=== PATIENT | male | born 1985 | race Caucasian/White ===

== ENCOUNTER 2021-03-01 09:16 | Outpatient (REF) | payer OTHER, SELFPAY ==
[2021-03-01 10:18] LABS: Estimated Average Glucose 108 mg/dL; Hemoglobin A1c % 5.4 %
[2021-03-01 10:29] LABS: Cholesterol 170 mg/dL; HDL Cholesterol 40 mg/dL; LDL Cholesterol Calculated 104 mg/dl; Triglycerides 131 mg/dL
== END 2021-03-01 09:17 | disposition home or self-care (01) ==
LOC: HO.LAB 09:16
PROVIDERS: PCP Nurse Practitioner Family; Visit Provider Psychiatry & Neurology Psychiatry
DX: Z79.899 Other long term (current) drug therapy (principal)
CPT/HCPCS: 36415; 80061; 83036

== ENCOUNTER 2022-04-17 07:03 | Outpatient (REF) | payer OTHER, SELFPAY ==
[2022-04-17 12:01] LABS: Cholesterol 159 mg/dL; HDL Cholesterol 40 mg/dL; LDL Cholesterol Calculated 97 mg/dl; Triglycerides 111 mg/dL
[2022-04-18 07:23] LABS: Estimated Average Glucose 108 mg/dL; Hemoglobin A1c % 5.4 %
== END 2022-04-17 07:04 | disposition home or self-care (01) ==
LOC: HO.HMGCLDS 07:03
PROVIDERS: PCP Nurse Practitioner Family; Visit Provider Psychiatry & Neurology Psychiatry
DX: Z79.899 Other long term (current) drug therapy (principal)
CPT/HCPCS: 36415; 80061; 83036

== ENCOUNTER 2023-06-12 00:42 | Inpatient (IN) | payer OTHER, SELFPAY ==
[2023-06-12 00:51] VITALS: BP 164/106; PULSE 98; RESP 16; TEMP 36.5; O2SAT 95; BMI 40.8
--- NOTE | 2023-06-12 00:55 | PC.NURSE ---
Pt brought in by brother, per his brother he has been forgetting to take his risperidone. Pt endorses this as well. He reports he has been having increased auditory and visual hallucinations. Pt is calm and cooperative and verbalizes understanding that he needs assistance. Of note: pts brother mentioned that if he takes the following medications it increases his symptoms and makes things worse Zyprexa, Seroquel, Timberlake and Depakote
[2023-06-12] MEDS: LORazepam 1 MG TABLET 2 MG PO (01:32)
[2023-06-12] MEDS: risperiDONE 1 MG TABLET PO (01:32)
[2023-06-12 02:05] LABS: Appearance Urine Clear; Color Urine Yellow; Glucose Urine UA Negative (Negative); Leukocyte Esterase Urine Negative (Negative); Nitrite Urine Negative (Negative); Urine Blood Negative (Negative); Urine Ketones Negative (Negative); Urine Protein Negative (Neg-Trace)
[2023-06-12 02:08] LABS: COVID-19 Test Negative (Negative); IDNOW Serial# BCCEAD1C
[2023-06-12 02:11] LABS: Amphetamine Screen Urine Not Detected (Not Detect); Barbiturates, Urine Not Detected (Not Detect); Benzodiazepines Screen Urine Not Detected (Not Detect); Cannabinoid Screen Urine Not Detected (Not Detect); Cocaine Screen Urine Not Detected (Not Detect); Fentanyl, urine Not Detected (Not Detect); Opiate Screen Urine Not Detected (Not Detect); Phencyclidine Screen Urine Not Detected (Not Detect)
[2023-06-12 02:46] LABS: Basophils Percent Auto 0.6 % (0-2); Eosinophils Absolute Auto 0.2 X10*3/uL (0.0-0.4); Eosinophils Percent Auto 2.7 % (0-4); Hematocrit 43.7 % (42.0-52.0); Hemoglobin 15.9 g/dl (14.0-18.0); Imm Gran Abs Auto 0.03 X10*3/uL (0.00-0.03); Imm Gran Pct Auto 0.4 % (0.0-0.4); Lymphocytes Absolute Auto 2.1 X10*3/uL (1.2-4.9); Lymphocytes Percent Auto 31.6 % (20-40); MANUAL DIFF FLAG NO; Mean Corpuscular HGB Conc 36.4 g/dl (31.0-36.0); Mean Corpuscular Hemoglobin 29.1 pg (27.0-33.0); Mean Corpuscular Volume 79.9 fL (80.0-98.0); Mean Platelet Volume 9.4 fL (9.4-12.4); Monocytes Absolute Auto 0.9 X10*3/uL (0.1-1.2); Neutrophils Absolute Auto 3.5 x10*3/uL (2.0-8.3); Neutrophils Percent Auto 51.7 % (45-73); Platelet Count 242 X10*3/uL (160-400); Red Blood Count 5.47 X10*6/uL (4.60-5.80); Red Cell Distribution Width 12.5 % (11.0-16.0); White Blood Count 6.8 X10*3/uL (4.8-10.8)
[2023-06-12 03:06] LABS: Alanine Aminotransferase 60 U/L (0-40); Albumin Level 4.3 g/dL (3.5-5.0); Alkaline Phosphatase 64 U/L (39-117); Anion Gap 15 (12-20); Aspartate Amino Transferase 39 U/L (5-37); Bilirubin Total 0.9 mg/dL (0.0-1.0); Blood Urea Nitrogen 13 mg/dL (9-16); Calcium 9.3 mg/dL (8.4-10.2); Carbon Dioxide 21 mmol/L (22-29); Chloride 103 mmol/L (96-108); Creatinine Clr Calc Pharmacy 133.9; Estimated Glomerular Filt Rate > 60; Ethanol < 10 mg/dL; Glucose Random 118 mg/dL (60-115); Potassium 3.7 mmol/L (3.3-5.1); Sodium 135 mmol/L (135-145); Total Protein 7.3 g/dL (6.5-8.0)
--- NOTE | 2023-06-12 03:31 | MHC.CARE ---
T/W spoke with Pts brother Chin Quach. He reports his brother is Schizoaffective Bipolar.He takes resperidone but has been forgeting to take it. Chin said that his brother is currently hearing voices /seeing things and acting in the manner he usually does when he becomes manic. He reports that Alex has three bottles of resperidone but he said he threw one away because he believes it has been tampered with. Chin added that his brother has been drinking alcohol more frequently as well. Chin reports Pt is beginning to withdraw from others and has been less social over the past week. He reports hearing voices to his Brother. Chin said, Pt has gone [facility] twice before at [facility] to stabilize after decompensating. He said Alex wanted to come to the ER to get his medication right but by the time he got here he had no idea why he was at the ER. I attempted to interview Alex but he had been medicated earlier and I couldn't awaken him.He will be seen in the morning.
--- NOTE | 2023-06-12 05:53 | ED.PSYCH ---
HPI - Psych General Chief Complaint: Psychiatric Symptoms Stated Complaint: psych eval Time Seen by Provider: 06/12/23 01:13 Source: patient and EMS Mode of arrival: ambulatory Limitations: no limitations History of Present Illness HPI Narrative: Patient's with history of bipolar disorder forgetting to take his risperidone tab and says that he has only missed 1 tablet was in the car with his brother who was driving the car , patient's brother noticed something different and had concerns about him and brought him to the ER patient denies any complaints very anxious on arrival denies any SI or HI says that is not feeling himself otherwise Related Data Home Medications Medication Instructions Recorded Confirmed fluticasone furoate 100 1 ea inhalation DAILY 06/12/23 06/12/23 mcg-vilanterol 25 mcg/dose inhalation powder (Breo Ellipta) lansoprazole 30 mg capsule,delayed 30 mg PO DAILY 06/12/23 06/12/23 release risperidone 0.5 mg tablet 0.5 mg PO BID 06/12/23 06/12/23 Allergies Allergy/AdvReac Type Severity Reaction Status Date / Time cat dander [CAT] Allergy Intermediate UNKNOWN Verified 06/12/23 00:57 formoterol [From Dulera] Allergy Unknown Unknown Verified 06/12/23 00:57 mometasone furoate Allergy Unknown Unknown Verified 06/12/23 00:57 [From Dulera] salmeterol Allergy Unknown Unknown Verified 06/12/23 00:57 theophylline Allergy Unknown UNKNOWN Verified 06/12/23 00:57 Review of Systems Review of Systems: Yes all other systems are reviewed and are negative FOR[facility]LY [facility], [facility] Past Medical History Medical History Mild intermittent asthma without complication Anxiety and depression Dorsalgia Surgical History No pertinent past surgical history Family History Family History Father No problems noted. Mother HTN (hypertension) Diabetes mellitus Maternal Grandmother Diabetes mellitus Cancer Maternal Grandfather No problems noted. Brother No problems noted. Social History Social History Advance Directives: No Advance Directives Information Provided: Yes Physical Exam Vital Signs: Vital Signs: Last Vital Signs Temp 97.7 F 06/12/23 00:51 Pulse 98 06/12/23 00:51 Resp 16 06/12/23 00:51 BP 164/106 H 06/12/23 00:51 Pulse Ox 95 06/12/23 00:51 O2 Del Method Room Air 06/12/23 00:51 BMI result Body Mass Index 40.8 Appearance: Alert. Oriented X3. No acute distress. Eyes: PERRLA, No Nystagmus ENT: Pharynx normal. Oral Mucosa moist Neck: Normal inspection. Neck supple. CVS: Normal heart rate and rhythm. Pulses normal. Respiratory: No respiratory distress. Equal air entry bilateral, no wheezing/rales/rhonchi Abdomen: Soft and nontender. Bowel sounds are present, no mass palpable, no CVA tenderness Skin: Skin warm and dry. Normal skin color. Normal skin turgor. Extremities: No lower extremity edema. No calf tenderness psych: Anxious denies any SI or HI no delusions or hallucination Neuro: Oriented X 3. No motor deficit. No sensory deficit.No cerebellar signs , cranial nerves II-XII intact Medications Administered Discontinued Medications Generic Name Dose Route Start Last Admin Trade Name Freq PRN Reason Stop Dose Admin Lorazepam 2 mg 06/12/23 01:26 06/12/23 01:32 Lorazepam 1 Mg Tablet PO 06/12/23 01:27 2 mg ONCE ONE Administration Risperidone 1 mg 06/12/23 01:26 06/12/23 01:32 Risperidone 1 Mg Tablet PO 06/12/23 01:27 1 mg ONCE ONE Administration Medical Decision Making Medical Decision Making [facility] Narrative: Patient to be seen by care team for bipolar disorder. Medically cleared no history of substance abuse Differential Diagnosis Differential Diagnoses: The differential diagnosis associated with the presentation includes Bipolar disorder/anxiety Lab Data [facility] Lab Attestation statement: I reviewed the patient's lab results. 06/12/23 02:41 06/12/23 02:41 Labs: Lab Results 06/12/23 06/12/23 06/12/23 Range/Units 01:43 01:55 02:41 WBC 6.8 (4.8-10.8) X10*3/uL RBC 5.47 (4.60-5.80) X10*6/uL Hgb 15.9 (14.0-18.0) g/dl Hct 43.7 (42.0-52.0) % MCV 79.9 L (80.0-98.0) fL MCH 29.1 (27.0-33.0) pg MCHC 36.4 H (31.0-36.0) g/dl RDW 12.5 (11.0-16.0) % Plt Count 242 (160-400) X10*3/uL MPV 9.4 (9.4-12.4) fL Immature Gran % (Auto) 0.4 (0.0-0.4) % Neut % (Auto) 51.7 (45-73) % Lymph % (Auto) 31.6 (20-40) % [place] % (Auto) 13.0 H (2-11) % Eos % (Auto) 2.7 (0-4) % Baso % (Auto) 0.6 (0-2) % Lymph # (Auto) 2.1 (1.2-4.9) X10*3/uL [place] # (Auto) 0.9 (0.1-1.2) X10*3/uL Eos # (Auto) 0.2 (0.0-0.4) X10*3/uL Baso # (Auto) 0.0 (0.0-0.2) X10*3/uL Abs Immat Gran (auto) 0.03 (0.00-0.03) X10*3/uL Absolute Neuts (auto) 3.5 (2.0-8.3) x10*3/uL Absolute Nucleated RBC 0.000 (0.0-0.012) X10*3/uL Nucleated RBC % (auto) 0.0 (0.0-0.2) /100WBC Sodium 135 (135-145) mmol/L Potassium 3.7 (3.3-5.1) mmol/L Chloride 103 (96-108) mmol/L Carbon Dioxide 21 L (22-29) mmol/L Anion Gap 15 (12-20) BUN 13 (9-16) mg/dL Creatinine 0.94 (0.5-1.4) mg/dL Estim Creat Clear Calc 133.9 Estimated GFR > 60 Random Glucose 118 H (60-115) mg/dL Calcium 9.3 (8.4-10.2) mg/dL Total Bilirubin 0.9 (0.0-1.0) mg/dL AST 39 H (5-37) U/L ALT 60 H (0-40) U/L Alkaline Phosphatase 64 (39-117) U/L Total Protein 7.3 (6.5-8.0) g/dL Albumin 4.3 (3.5-5.0) g/dL Urine Color Yellow Urine Appearance Clear Urine pH 6.0 (5.0-9.0) Ur Specific [place] 1.010 (1.005-1.025) Urine Protein Negative (Neg-Trace) mg/dL Urine Glucose (UA) Negative (Negative) mg/dL Urine Ketones Negative (Negative) mg/dL Urine Blood Negative (Negative) Urine Nitrite Negative (Negative) Ur Leukocyte Esterase Negative (Negative) Urine Opiates Screen Not Detected (Not Detect) Urine Fentanyl Screen Not Detected (Not Detect) Ur Barbiturates Screen Not Detected (Not Detect) Ur Phencyclidine Scrn Not Detected (Not Detect) Ur Amphetamines Screen Not Detected (Not Detect) U Benzodiazepines Scrn Not Detected (Not Detect) Urine Cocaine Screen Not Detected (Not Detect) U Marijuana (THC) Screen Not Detected (Not Detect) Ethyl Alcohol < 10 mg/dL COVID-19 (FRAN) Negative (Negative) COVID-19 Clin Com See Note Discharge Plan Discharge Clinical Impression: Bipolar disorder Patient Disposition: Still a Patient Prescriptions: No Action lansoprazole 30 mg capsule,delayed release(DR/EC) 30 mg PO DAILY risperidone 0.5 mg tablet 0.5 mg PO BID fluticasone furoate-vilanterol [Breo Ellipta] 100-25 mcg/dose blister with device 1 ea inhalation DAILY Interventions: Ponce-Suicide Risk Severity Scale Last Done: 06/12/23 05:47
--- NOTE | 2023-06-12 06:08 | PC.NURSE ---
Patient slept through the night, no distress observed/reported, behavior non concerning at this time, thought content disorganized due to non med compliant, risperidone 1 mg + Ativan 2 mg PO administered at 0132 with + effect, med rec completed/pending provider's approval, care consult ordered pending evaluation, labs completed/pending provider's approval, VSS, will continue to monitor.
--- NOTE | 2023-06-12 07:24 | PHA.MEDREC ---
Pharmacy Consult ? Medication Reconciliation Pharmacy has completed the medication reconciliation. Reviewed med rec done by nursing
[2023-06-12] MEDS: risperiDONE 0.5 MG TABLET PO ×2 (08:03→20:30)
[2023-06-12] MEDS: Omeprazole 20 MG CAPSULE.DR PO (08:03)
--- NOTE | 2023-06-12 11:57 | ECG_ITS ---
Test Reason : CHECK PROLONG QT Blood Pressure : / mmHG Vent. Rate : 099 BPM Atrial Rate : 099 BPM P-R Int : 130 ms QRS Dur : 090 ms QT Int : 346 ms P-R-T Axes : 023 043 036 degrees QTc Int : 444 ms Normal sinus rhythm Normal ECG No previous ECGs available Referred By: Iván Casillas Electronically Signed By:MEDHAT LENNON MD
[2023-06-12 12:58] VITALS: RESP 18
[2023-06-12 14:18] VITALS: BP 165/114; PULSE 122; RESP 16; TEMP 36.6; O2SAT 94
--- OUTSIDE RECORDS SUMMARY | 2023-06-12 15:56 | XMS_ITS | Continuity of Care Document ---
Author Name Unknown Organization [facility] Address [address] [place] [address]- Care Team Providers Care Repair Armature Winder Name Role Phone Rasheed CARL, Jason Calzada Primary Care Physician [phone] Encounter [facility] [place] Date(s): 02/21/21 - 03/23/21 [facility] [address] [address]- Attending Physician: Alysha Savage Admitting Physician: AdmAlysha aguero Referring Physician: AdmtrAlysha Allergies, Adverse Reactions, Alerts Substance Reaction Severity Status Slo-Bid Gyrocaps Active Symbicort Active Immunizations Given and Recorded Vaccine Date Status Refusal Reason SARS-CoV-2 (COVID-19) mRNA BNT-162b2 vac 01/04/21 Given SARS-CoV-2 (COVID-19) mRNA BNT-162b2 vac 12/14/20 Given tetanus/diphtheria/pertussis, acel(Tdap) 02/15/08 Given Medications Albuterol (Eqv-ProAir HFA) 90 mcg/inh inhalation aerosol 2 puffs, Inhalation, Every 6 hours, Maintenance, 11/21/20 16:52:00 EDT, Partial fill upon patient request if the prescription is for a schedule II opioid drug. Start Date: 11/21/20 Status: Ordered Breo Ellipta 100 mcg-25 mcg/inh inhalation powder 1 puffs, Inhalation, Daily, Maintenance, 11/21/20 16:52:00 EDT, Powder, Partial fill upon patient request if the prescription is for a schedule II opioid drug. Start Date: 11/21/20 Status: Ordered lansoprazole 15 mg oral enteric coated capsule 1 capsule = 15 mg, By Mouth, Daily, Maintenance, 11/21/20 16:53:00 EDT, EC Capsule, Partial fill upon patient request if the prescription is for a schedule II opioid drug. Start Date: 11/21/20 Status: Ordered RisperDAL 0.5 mg oral tablet 0.5 mg, 1, tablet, By Mouth, 2 times a day, Maintenance, 11/21/20 16:53:00 EDT, Partial fill upon patient request if the prescription is for a schedule II opioid drug. Start Date: 11/21/20 Status: Ordered Problem List Condition Effective Dates Status Health Status Inform ant Allergic rhinitis(Confirmed) Active Asthma(Confirmed) Active Eczema(Confirmed) Active Gastroesophageal reflux disease(Confirmed) Active Social History Social History Type Response Sex Male
--- OUTSIDE RECORDS SUMMARY | 2023-06-12 15:56 | XMS_ITS | Continuity of Care Document ---
Author Name Unknown Organization [facility] Address [address] [place] [address]- Care Team Providers Care Tyre Fitter Name Role Phone Rasheed CARL, Jason Calzada Primary Care Physician [place] [facility] [place] 11/23/20 - 03/23/21 [facility] [address] [place] [address]- Attending Physician: Darrell Chase MD Admitting Physician: Darrell Chase MD Referring Physician: Jason Iqbal NP Allergies, Adverse Reactions, Alerts Substance Reaction Severity [...]
--- OUTSIDE RECORDS SUMMARY | 2023-06-12 15:56 | XMS_ITS | Continuity of Care Document ---
Author Name Unknown Organization [facility] Address [address] [place] [address]- Care Team Providers Care Art Therapy Specialist Name Role Phone Rasheed CARL, Jason Calzada Primary Care Physician [phone] Encounter [facility] Date(s): 10/24/20 - 12/06/20 [facility] [address] [place] [address]- Attending Physician: Loreto Harman MD Referring Physician: Jason Iqbal NP Allergies, Adverse Reactions, Alerts Substance Reaction Severity Status Symbicort Active Slo-Bid Gyrocaps Active Immunizations Given and Recorded Vaccine Date Status Refusal Reason tetanus/diphtheria/pertussis, acel(Tdap) 02/15/08 Given Medications Albuterol (Eqv-ProAir [...]
--- OUTSIDE RECORDS SUMMARY | 2023-06-12 15:57 | XMS_ITS | Continuity of Care Document ---
Author Name Unknown Organization [facility] Address [address] [place] [address]- Care Team Providers Care Child Support Investigator Name Role Phone Rasheed CARL, Jason Calzada Primary Care Physician Encounter [facility] Date(s): 10/24/20 - 11/23/20 [facility] [address] [place] [address]- Allergies, Adverse Reactions, Alerts Substance Reaction Severity [...]
--- OUTSIDE RECORDS SUMMARY | 2023-06-12 15:57 | XMS_ITS | Continuity of Care Document ---
Author Name Unknown Organization [facility] Address [address] [place] [address]- Care Team Providers Care Manager Post Name Role Phone Jason Iqbal NP Primary Care Physician [phone] Encounter [facility] Date(s): 11/06/20 - 12/06/20 [facility] [address] [place] [address]- Attending Physician: Alysha Savage Admitting Physician: AdmAlysha [...]
--- OUTSIDE RECORDS SUMMARY | 2023-06-12 15:57 | XMS_ITS | Continuity of Care Document ---
Author Name Unknown Organization [facility] Address [address] [place] [address]- Care Team Providers Care Paper Maker Name Role Phone Rasheed CARL, Jason Calzada Primary Care Physician Encounter [facility] [place] Date(s): 05/29/21 - 05/29/[address] [address]- Discharge Disposition: A-D/C Walkout Attending Physician: Not on Staff, Attending MD Admitting Physician: Not on Staff, Admitting MD Referring Physician: Not on Staff, Referring MD Allergies, Adverse Reactions, Alerts Substance Reaction Severity [...] Active Eczema(Confirmed) Active Gastroesophageal reflux disease(Confirmed) Active Results Radiology Reports * Exam Date Time Procedure Performing Provider Status 05/29/21 8:02 PM Chest Portable Johnna Hernandez; Skinny (V erified) Notes: (Chest Portable) Reason For Exam: Shortness of Breath, Fever;Other: RESULT: Chest Portable Chest Portable Hx of Present Illness: Patient w hx of asthma, worse x2 days. Arrives today to ER for constantly. Patient has been taking Brio 200 inhaler daily. Using albuterol neb twice a day.; Reason: Other:; Shortness of Breath, Fever; Clinical Question(s): Pneumonia COMPARISON: 10/13/2020 and 09/19/2020. FINDINGS: LINES AND TUBES: None. LUNGS AND PLEURA: Clear lungs. Normal pulmonary vascularity. No pleural effusion. No pneumothorax. HEART, MEDIASTINUM AND OBINNA: Heart is normal in size. Normal upper mediastinal and hilar contour. BONES AND SOFT TISSUES: No acute abnormality. IMPRESSION: No acute abnormality. WSN: [id number] Ordering Physician: Bartolome Olguin Dictated By: Olivia Woodard MD Dictated Date/Time: 05/29/21 8:07 pm Reviewed By: Olivia Woodard MD Signed By: Olivia Woodard MD Signed Date/Time: 05/29/21 8:07 pm Transcribed By: TOI Transcribed Date/Time: 05/29/21 8:06 pm Vital Signs Most recent to oldest [Reference Range]: 1 2 Oxygen Saturation [94-100 %] 99 % (05/29/21 10:20 PM) 100 % (05/29/21 7:10 PM) Pulse Rate [55-90 bpm] 85 bpm (05/29/21 10:20 PM) 92 bpm *H* (05/29/21 7:10 PM) Blood Pressure [90-138/55-84 mm Hg] 153/ 88mm Hg *H* (05/29/21 10:20 PM) 162/90mm Hg *H* (05/29/21 7:10 PM) Respiratory Rate [16-30 br/min] 20 br/mi n (05/29/21 10:20 PM) 20 br/min (05/29/21 7:10 PM) Temperature [96.8-100.4 DegF] 98.9 DegF (05/29/21 10:20 PM) 97.6 DegF (05/29/21 7:10 PM) Mode of Delivery (Oxygen) room air (05/29/21 10:20 PM) Room air (05/29/21 7:10 PM) Blood pressure sites Arm, right (05/29/21 10:20 PM) Temperature Route Oral (05/29/21 10:20 PM) Oral (05/29/21 7:10 PM) Weight Obtained Via uto (05/29/21 7:40 PM) Dry Weight Obtained Via uto (05/29/21 7:40 PM) Social History Social History Type Response Sex Male
--- OUTSIDE RECORDS SUMMARY | 2023-06-12 15:57 | XMS_ITS | Continuity of Care Document ---
Author Name Unknown Organization [facility] Address [address] [place] [address]- Care Team Providers Care Electronic Semiconductor Processor Name Role Phone Rasheed CARL, Jason Calzada Primary Care Physician En[place] [facility] [place] Date(s): 09/02/22 - 10/02/22 [facility] [address] [facility] [address] [place] [address]- Attending Physician: Alysha Savage Admitting Physician: AdmAlysha aguero Referring Physician: AdmtrAlysha Allergies, Adverse Reactions, Alerts Substance Reaction Severity Status Symbicort Active Slo-Bid Gyrocaps Active Immunizations Given and Recorded Vaccine Date Status Refusal Reason SARS-CoV-2 (COVID-19) mRNA BNT-162b2 vac 07/14/21 Recorded SARS-CoV-2 (COVID-19) mRNA BNT-162b2 vac 01/04/21 Given [...] lansoprazole 15 mg oral enteric coated capsule 2 capsule = 30 mg, By Mouth, Daily, Maintenance, 11/21/20 16:53:00 [...] Date: 11/21/20 Status: Ordered Problem List Condition Confirmation Course Effective Dates Status H ealth Status Informant Allergic rhinitis Confirmed Active Asthma Confirmed Active Eczema Confirmed Active Gastroesophageal reflux disease Confirmed Active Severe obesity Confirmed Active Social History Social History Type Response Sex Male Patient Care team information Care Team Personnel Name: Jason Iqbal NP Position: Reference Physician Member Role: PCP Address: Address: [address] [place] [address]- Care Team Related Persons Name: CLYDE ROY Address: home [address] [place] [address] Name: RITA ROY Address: [address] [place] [address] Name: VANDANA ROY Address: [address] [place] [address]
--- OUTSIDE RECORDS SUMMARY | 2023-06-12 15:57 | XMS_ITS | Continuity of Care Document ---
Author Name Unknown Organization [facility] Address [address] [place] [address]- Care Team Providers Care Industrial Hygiene Technician Name Role Phone Rasheed CARL, Jason Calzada Primary Care Physician [place] [facility] [place] 05/[place]/23 [facility] [address] [facility] [address] [place] [address]- Attending Physician: Alysha Savage Admitting Physician: AdmAlysha [...] Reference Physician Member Role: PCP Address: Address: [address] [place] [address]- Care Team Related Persons Name: CLYDE ROY Address: home [address] [place] [address] Name: RITA ROY Address: [address] [place] [address] Name: VANDANA ROY Address: [address] [place] [address]
--- OUTSIDE RECORDS SUMMARY | 2023-06-12 15:57 | XMS_ITS | Continuity of Care Document ---
Author Name Unknown Organization [facility] Address [address] [place] [address]- Care Team Providers Care Wares Sorter Name Role Phone Rasheed CARL, Jason Calzada Primary Care Physician [phone] Encounter [facility] [place] Date(s): 01/29/23 - 05/29/23 [facility] [address] [place] [address]- Attending Physician: Salvatore CARDOSO, Darrell Michel Referring Physician: Jason Iqbal NP Allergies, Adverse [...] Reference Physician Member Role: PCP Address: Address: [address] [place] [address]- [place] Care Team Related Persons Name: CLYDE ROY Address: home [address] [place] [address] Name: RITA ROY Address: [address] [place] [address] Name: VANDANA ROY Address: [address] [place] [address]
--- OUTSIDE RECORDS SUMMARY | 2023-06-12 15:57 | XMS_ITS | Continuity of Care Document ---
Author Name Unknown Organization [facility] Address [address] [place] [address]- Care Team Providers Care Top Lift Compressor Name Role Phone Rasheed CARL, Jason Calzada Primary Care Physician [phone] Encounter [facility] [place] Date(s): 09/02/22 - 09/09/22 [facility] [address] [place] [address]- Encounter Diagnosis Asthma(Discharge Diagnosis) - 09/02/22 Allergic rhinitis(Discharge Diagnosis) - 09/02/22 Gastroesophageal reflux disease(Discharge Diagnosis) - 09/02/22 Attending Physician: Salvatore CARDOSO, Darrell Michel Referring [...] disease Confirmed Active Severe obesity Confirmed Active Diagnosis Diagnosis Type Effective Dates Health Status Clinical Service Informant Asthma Discharge Diagnosis 09/02/22 Allergic rhinitis Discharge Diagnosis 09/02/22 Gastroesophageal reflux disease Discharge Diagnosis 09/02/22 Vital Signs Most recent to oldest [Reference Range]: 1 2 Height 170.00 cm (09/02/22 2:04 PM) 170.00 cm (09/02/22 2:00 PM) Weight 121.8 kg (09/02/22 2:00 PM) Oxygen Saturation [94-100 %] 98 % (09/02/22 2:00 PM) Pulse Rate [55-90 bpm] 89 bpm (09/02/22 2:04 PM) 88 bpm (09/02/22 2:00 PM) Body Mass Index [18.5-24.99 kg/m2] 42.15 kg/m2 *>HHI* (09/02/22 2:00 PM) Blood Pressure [90-138/55-84 mm Hg] 138/ 91mm Hg (09/02/22 2:04 PM) 144/90mm Hg *H* (09/02/22 2:00 PM) Blood pressure sites Arm, left (09/02/22 2:04 PM) Arm, right (09/02/22 2:00 PM) Social History Social History Type Response Sex Male Patient Care team information Care Team Personnel Name: Rasheed CARL , Jason Calzada Position: Reference Physician Member Role: PCP Address: Address: [address] [place] [address]- Care Team Related Persons Name: CLYDE ROY Address: home [address] [place], [place] Name: RITA ROY Address: [address] [place], [place] Name: VANDANA ROY Address: [address] [place] [address]
--- OUTSIDE RECORDS SUMMARY | 2023-06-12 15:57 | XMS_ITS | Continuity of Care Document ---
Author Name Unknown Organization [facility] Address [address] [place] [address]- Care Team Providers Care Qlikview Developer Name Role Phone Rasheed CARL, Jason Calzada Primary Care Physician [phone] Encounter [facility] Date(s): 08/30/22 - 09/29/22 [facility] [address] [place] [address]- Allergies, Adverse Reactions, Alerts Substance Reaction Severity [...] Physician Member Role: PCP Address: Address: [address] [place] [address]- Care Team Related Persons Name: CLYDE ROY Address: home [address] [place] [address] Name: RITA ROY Address: [address] [place] [address] Name: VANDANA ROY Address: home [address] [place] [address]
--- NOTE | 2023-06-12 17:44 | PC.NURSE ---
Alex was OOB and visible in the milieu in the POD for most of the shift. Alex was adherent with his scheduled AM medications and has requested multiple glasses of water throughout the shift. Appetite good and ate sealed snacks and drinks his girlfriend brought in for him. Intense eye contact during exchanges and a paranoid edge to conversations. Alex had a visit from his brother and girlfriend which both seemed to be positive and he verbalized them being good. Alex denies SI/HI/AVH but does verbalize feeling frustrated with his mental health describing he's had 5 years without any issues . Mother called and reported she is in [place] but is flying home tomorrow. Alex signed a CV. Transferred without issue out of the POD on his way to
[2023-06-12 17:45] VITALS: BP 168/97; PULSE 115; TEMP 36.6
--- NOTE | 2023-06-12 19:27 | PC.ADMIT ---
Alex was admitted to at 1743 from [facility] on a CV for treatment of unspecified psychotic disorder. Pt self-presented to ED with a complaint feeling unwell and not himself. Pt reports missing one dose of his risperidone, but it is suspected that he has been off his medications for a longer period of time per Crisis assessment.? Pt presents as internally preoccupied, but denies AH/VH. Pt is paranoid and sometimes disorganized. Pt has a hx of 2 prior IPLOC for the same presentation. Pt is cooperative and in behavioral control. Pt has a fixed affect with an intense stare, pt is polite and pleasant. Pt has thought blocking, sometimes responding with answers that don?t make sense to the question. Pt is paranoid. Pt denies SI with plan or intent. Pt denies HI. Pt reports no issue r/t sleep or appetite. Pt is focused on discharging. Provider is aware of admission and orders are placed. Begin treatment plan and monitor for safety. Pt is placed on 15 minute safety checks. Pt reports he is safe on the unit.
[2023-06-13 06:00] VITALS: BP 146/84; PULSE 112; RESP 18; TEMP 36.2; O2SAT 96
[2023-06-13 08:25] LABS: Estimated Average Glucose 103 mg/dL; Hemoglobin A1c % 5.2 % (<6.0)
[2023-06-13] MEDS: risperiDONE 0.5 MG TABLET PO (08:28)
[2023-06-13] MEDS: Omeprazole 20 MG CAPSULE.DR PO (08:28)
[2023-06-13 08:38] LABS: Alanine Aminotransferase 67 U/L (0-40); Albumin Level 4.7 g/dL (3.5-5.0); Alkaline Phosphatase 66 U/L (39-117); Anion Gap 13 (12-20); Aspartate Amino Transferase 39 U/L (5-37); Bilirubin Total 1.5 mg/dL (0.0-1.0); Blood Urea Nitrogen 11 mg/dL (9-16); Carbon Dioxide 23 mmol/L (22-29); Chloride 106 mmol/L (96-108); Cholesterol 120 mg/dL (<200); Creatinine Clr Calc Pharmacy 136.8; Estimated Glomerular Filt Rate > 60; Glucose Fasting 119 mg/dL (60-99); HDL Cholesterol 38 mg/dL (>40); LDL Cholesterol Calculated 69 mg/dL (<100); Magnesium 2.3 mg/dL (1.6-2.6); Potassium 4.1 mmol/L (3.3-5.1); Sodium 138 mmol/L (135-145); Total Protein 8.1 g/dL (6.5-8.0); Triglycerides 68 mg/dL (<150)
[2023-06-13 08:57] LABS: Free T4 (Free Thyroxine) 1.13 ng/dL (0.71-1.85); Thyroid Stimulating Hormone 1.51 uIU/mL (0.32-4.0)
[2023-06-13 09:03] LABS: Folate 14.4 ng/mL (> or = 4.0); Vitamin B12 539 pg/mL (200-900)
[2023-06-13] MEDS: Fluticasone/Vilanterol 100/25 BLST.W.DEV 1 PUFF INHALE (09:05)
--- NOTE | 2023-06-13 14:11 | P.HPPS_ITS ---
HPI Date of Service: 06/13/23 Chief Complaint: Bipolar disorder Sources of Information: patient interviewed (brief, pt significantly paranoid and dismissive of request to meet.), chart reviewed and crisis/core team assessment reviewed HPI Narrative: 37 yo male, history of schizoaffective disorder, bipolar type. Presented to ER reporting feeling unwell. Reports he missed a dose of Risperdal. Presents with paranoia, internal preoccupation, disorganization. Hx of engaging in risky behaviors, hx of driving family car into [facility] when manic, hx of being missing for periods of time. Reports hx of perceptual alterations. Pt is paranoid and disorganized on the unit. When approached to meet, he appeared frightenend then angry. You are the IT Clown-I need to kill you. Oriented pt and he then apologized, No , you are my sister in law, Lizbet . Oriented pt, he again apologized and stated that he could not meet as he was afraid. Team has reached out to pt's brother, officer Grantjunaid Conn, who reports current regime to not be strong enough. At baseline pt is reported to be suspicious. Symptoms began at age 28. Pt diagnosed with both bipolar, keven and schizoaffective, bipolar type. Brief check in with pt to reassure him. He is conflicted with team, conflicted with Risperdone vs Risperdal and what do do. Assured him of our efforts to help him with safety and treatment. Past Psychiatric History: IP: [place]- age 28 and in 2018 OP: MIRANDA- [facility] Encarnacion-therapy; Dr. Rivers-psychopharmacology Trials: Several Medical Evaluation Reviewed: Yes [facility] Medical History (Updated 06/13/23 @ 16:53 by Karen Johns APRN) Schizoaffective disorder, bipolar type Mild intermittent asthma without complication Anxiety and depression Dorsalgia Surgical History No pertinent past surgical history Family History: Dementia-paternal relatives Suicide, Schizophrenia-maternal relatives Social History: Born in [place], raised in [place] by both parents Attended [employer]-high school graduate Never No children Substance History: toxicology negative Trauma History: Denies to team Diagnostics Vital Signs (24Hr): Vital Signs - 24 hr 06/12/23 14:18 06/12/23 17:45 06/13/23 06:00 Temperature 98 F 97.9 F 97.1 F Pulse Rate 122 H 115 H 112 H Respiratory Rate 16 18 Blood Pressure 165/114 H 168/97 H 146/84 H Pulse Oximetry 94 96 Oxygen Delivery Method Room Air Room Air BMI result Body Mass Index 40.8 Labs 06/12/23 02:41 06/13/23 08:03 Labs: Laboratory Results - last 48 hr 06/12/23 06/12/23 06/12/23 01:43 01:55 02:41 WBC 6.8 RBC 5.47 Hgb 15.9 Hct 43.7 MCV 79.9 L MCH 29.1 MCHC 36.4 H RDW 12.5 Plt Count 242 MPV 9.4 Immature Gran % (Auto) 0.4 Neut % (Auto) 51.7 Lymph % (Auto) 31.6 [place] % (Auto) 13.0 H Eos % (Auto) 2.7 Baso % (Auto) 0.6 Lymph # (Auto) 2.1 [place] # (Auto) 0.9 Eos # (Auto) 0.2 Baso # (Auto) 0.0 Abs Immat Gran (auto) 0.03 Absolute Neuts (auto) 3.5 Absolute Nucleated RBC 0.000 Nucleated RBC % (auto) 0.0 Sodium 135 Potassium 3.7 Chloride 103 Carbon Dioxide 21 L Anion Gap 15 BUN 13 Creatinine 0.94 Estim Creat Clear Calc 133.9 Estimated GFR > 60 Random Glucose 118 H Fasting Glucose Estimat Average Glucose Hemoglobin A1c % Calcium 9.3 Magnesium Total Bilirubin 0.9 AST 39 H ALT 60 H Alkaline Phosphatase 64 Total Protein 7.3 Albumin 4.3 Triglycerides Cholesterol LDL Cholesterol, Calc HDL Cholesterol Vitamin B12 Folate TSH Free T4 Urine Color Yellow Urine Appearance Clear Urine pH 6.0 Ur Specific [place] 1.010 Urine Protein Negative Urine Glucose (UA) Negative Urine Ketones Negative Urine Blood Negative Urine Nitrite Negative Ur Leukocyte Esterase Negative Urine Opiates Screen Not Detected Urine Fentanyl Screen Not Detected Ur Barbiturates Screen Not Detected Ur Phencyclidine Scrn Not Detected Ur Amphetamines Screen Not Detected U Benzodiazepines Scrn Not Detected Urine Cocaine Screen Not Detected U Marijuana (THC) Screen Not Detected Ethyl Alcohol < 10 COVID-19 (FRAN) Negative COVID-19 Clin Com See Note 06/13/23 08:03 WBC RBC Hgb Hct MCV MCH MCHC RDW Plt Count MPV Immature Gran % (Auto) Neut % (Auto) Lymph % (Auto) [place] % (Auto) Eos % (Auto) Baso % (Auto) Lymph # (Auto) [place] # (Auto) Eos # (Auto) Baso # (Auto) Abs Immat Gran (auto) Absolute Neuts (auto) Absolute Nucleated RBC Nucleated RBC % (auto) Sodium 138 Potassium 4.1 Chloride 106 Carbon Dioxide 23 Anion Gap 13 BUN 11 Creatinine 0.92 Estim Creat Clear Calc 136.8 Estimated GFR > 60 Random Glucose Fasting Glucose 119 H Estimat Average Glucose 103 Hemoglobin A1c % 5.2 Calcium 10.0 D Magnesium 2.3 Total Bilirubin 1.5 H AST 39 H ALT 67 H Alkaline Phosphatase 66 Total Protein 8.1 H Albumin 4.7 Triglycerides 68 Cholesterol 120 LDL Cholesterol, Calc 69 HDL Cholesterol 38 L Vitamin B12 539 Folate 14.4 TSH 1.51 Free T4 1.13 Urine Color Urine Appearance Urine pH Ur Specific [place] Urine Protein Urine Glucose (UA) Urine Ketones Urine Blood Urine Nitrite Ur Leukocyte Esterase Urine Opiates Screen Urine Fentanyl Screen Ur Barbiturates Screen Ur Phencyclidine Scrn Ur Amphetamines Screen U Benzodiazepines Scrn Urine Cocaine Screen U Marijuana (THC) Screen Ethyl Alcohol COVID-19 (FRAN) COVID-19 Clin Com Meds/Allergies Meds Home Medications Medication Instructions Recorded Confirmed Type fluticasone furoate 100 1 ea inhalation DAILY 06/12/23 06/12/23 History mcg-vilanterol 25 mcg/dose inhalation powder (Breo Ellipta) lansoprazole 30 mg capsule,delayed 30 mg PO DAILY 06/12/23 06/12/23 History release risperidone 0.5 mg tablet 0.5 mg PO BID 06/12/23 06/12/23 History Allergies Allergies Allergy/AdvReac Type Severity Reaction Status Date / Time cat dander [CAT] Allergy Intermediate UNKNOWN Verified 06/12/23 00:57 formoterol [From Dulera] Allergy Unknown Unknown Verified 06/12/23 00:57 mometasone furoate Allergy Unknown Unknown Verified 06/12/23 00:57 [From Dulera] salmeterol Allergy Unknown Unknown Verified 06/12/23 00:57 theophylline Allergy Unknown UNKNOWN Verified 06/12/23 00:57 Mental Status Exam Mental Status Exam Patient Appearance: Disheveled, Unkempt and Bizarre Patient Orientation: Person Level of Consciousness: Restless and Alert Patient Behavior: Guarded, Posturing, Suspicious, Aggressive, Restless, Verbal Threats, Fearful, Resistive to Care, Invasion - Personal Space, Distractible, Good Eye Contact and Pacing Mood Description: Apathetic, Suspicious, Withdrawn, Depressed, Fearful, Hostile, Anxious, Angry and Apprehensive Affect Description: Hostile, Labile and Angry Patient Cognition Impaired: Yes Ability to Follow Directions: Fair Speech Pattern: Perseverating, Spontaneous Speech, Rambling and Pressured Memory Description: Remote Impaired Hallucinations: Auditory and Visual Delusions: Being Controlled, Paranoid Ideation and Grandiose Perceptual Disturbances: Depersonalization, Derealization and Hallucinations Thought Process: Illogical, Distracted and Rumination Thought Content: positive for Obsessional Thoughts, positive for Circumstantial, positive for Perseveration, positive for Preoccupation, positive for Thought Blocking, positive for Disorganized and positive for Homicidal Ideation Depressive Symptoms: Increased Irritability Abnormal Motor Activity Signs and Symptoms: Agitation and Restlessness Judgement: Poor Assessment & Plan Assessment & Plan (1) Schizoaffective disorder, bipolar type: Status: Acute Code(s): F25.0 - Schizoaffective disorder, bipolar type Plan 37 yo male, hx of bipolar disorder, schizoaffective disorder since ~age 28 to ER reporting not feeling well. Non compliance with regime, regime being low probable precipitants. Pt acutely psychotic on the unit. Refusing increase in meds, trial of [place], Olanzapine. Plan: Increase Risperdal to 2 mg po bid Diagnostics appear intact Continue [place] offer, Lorazapem, Haldo prn Patient educated on: therapeutic strategies Informed Consent: does not understand Reason for continued inpatient stay Substantial Risk for: harm to others, inability to function and rapid decompensation Statement Statement: I have reviewed the history and physical and performed a pertinent examination on my patient. No changes have occurred unless specified. If the History and Physical was not performed prior to admission, the Hospitalist's service will be consulted for completing the admission physical. Time Spent With Patient Time: Total time managing care of this patient today ____ minutes.
[2023-06-13] MEDS: risperiDONE 2 MG TABLET PO (21:00)
--- NOTE | 2023-06-13 21:06 | PC.NURSE ---
PT paranoid, took 10 minutes for med pass. Stared intently at this rfp writer before finally swallowing meds.
[2023-06-14] MEDS: traZODone HCL 50 MG TABLET PO (01:48)
[2023-06-14] MEDS: Omeprazole 20 MG CAPSULE.DR PO (06:29)
[2023-06-14 07:45] VITALS: BP 172/83; PULSE 103; RESP 18; TEMP 36.7; O2SAT 95
[2023-06-14] MEDS: risperiDONE 2 MG TABLET PO ×2 (08:51→19:58)
[2023-06-14] MEDS: Lithium Carbonate 300 MG CAPSULE PO ×2 (08:51→19:58)
[2023-06-14] MEDS: Fluticasone/Vilanterol 100/25 BLST.W.DEV 1 PUFF INHALE (08:59)
[2023-06-14] MEDS: LORazepam 1 MG TABLET PO ×2 (09:06→19:57)
[2023-06-14] MEDS: HaloperidoL 5 MG TABLET PO (09:06)
--- NOTE | 2023-06-14 10:03 | HO.PSYCHPN ---
Subjective Subjective Date of Service: 06/14/23 Reason For Visit: Bipolar disorder Interim History: Reports he is doing OK. He is adherent to his medications. He denies side effects. Denies SI/HI/AVH. Review of Systems Review of Systems Yes all other systems are reviewed and are negative and Unobtainable due to mental status Reports behavioral changes Psychiatric: Reports behavioral changes, Reports difficulty concentrating, Reports auditory hallucinations, Reports irritability, Reports anhedonia, Reports mood swings, Reports paranoia, Reports visual hallucinations, Reports hallucinations and Reports homicidal ideation Mental Status Exam Mental Status Exam Patient Appearance: Disheveled, Unkempt and Bizarre Patient Orientation: Person Level of Consciousness: Restless and Alert Patient Behavior: Guarded, Posturing, Suspicious, Aggressive, Restless, Verbal Threats, Fearful, Resistive to Care, Invasion - Personal Space, Distractible, Good Eye Contact and Pacing Mood Description: Apathetic, Suspicious, Withdrawn, Depressed, Fearful, Hostile, Anxious, Angry and Apprehensive Affect Description: Hostile, Labile and Angry Patient Cognition Impaired: Yes Ability to Follow Directions: Fair Speech Pattern: Perseverating, Spontaneous Speech, Rambling and Pressured Memory Description: Remote Impaired Diagnostics Vital Signs (24Hr): Vital Signs - 24 hr 06/14/23 07:45 Temperature 98.0 F Pulse Rate 103 H Respiratory Rate 18 Blood Pressure 172/83 H Pulse Oximetry 95 Oxygen Delivery Method Room Air BMI result Body Mass Index 40.8 Labs 06/12/23 02:41 06/13/23 08:03 Labs: Laboratory Results - last 48 hr 06/13/23 08:03 Sodium 138 Potassium 4.1 Chloride 106 Carbon Dioxide 23 Anion Gap 13 BUN 11 Creatinine 0.92 Estim Creat Clear Calc 136.8 Estimated GFR > 60 Fasting Glucose 119 H Estimat Average Glucose 103 Hemoglobin A1c % 5.2 Calcium 10.0 D Magnesium 2.3 Total Bilirubin 1.5 H AST 39 H ALT 67 H Alkaline Phosphatase 66 Total Protein 8.1 H Albumin 4.7 Triglycerides 68 Cholesterol 120 LDL Cholesterol, Calc 69 HDL Cholesterol 38 L Vitamin B12 539 Folate 14.4 TSH 1.51 Free T4 1.13 Medications Medications Current Medications Acetaminophen (Acetaminophen 325 Mg Tablet) 650 mg PO Q6H PRN PRN Reason: Headache/Pain Mild Scale (1-3) Al Hydroxide/Mg Hydroxide (Magnesium Hydrox/Alum Hydrox 30 Ml Oral.Susp) 30 ml PO Q6H PRN PRN Reason: Heartburn/Nausea Fluticasone/Vilanterol (Fluticasone/Vilanterol 100/25 Blst.W.Dev) 1 puff INHALE RDAILY [facility] Last Admin: 06/14/23 08:59 Dose: 1 puff Haloperidol (Haloperidol 5 Mg Tablet) 5 mg PO Q4H PRN PRN Reason: psychosis Last Admin: 06/14/23 09:06 Dose: 5 mg Hydroxyzine HCl (Hydroxyzine Hcl 25 Mg Tablet) 25 mg PO Q6H PRN PRN Reason: Anxiety [place] Carbonate ([place] Carbonate 300 Mg Capsule) 300 mg PO BID [facility] Last Admin: 06/14/23 08:51 Dose: 300 mg Lorazepam (Lorazepam 1 Mg Tablet) 1 mg PO Q4H PRN PRN Reason: agitation Last Admin: 06/14/23 09:06 Dose: 1 mg Magnesium Hydroxide (Milk Of Magnesia 30 Ml Oral.Susp) 30 ml PO DAILY PRN PRN Reason: Constipation Omeprazole (Omeprazole 20 Mg Capsule.Dr) 20 mg PO DAILY@0630 [facility] Last Admin: 06/14/23 06:29 Dose: 20 mg Risperidone (Risperidone 2 Mg Tablet) 2 mg PO BID [facility] Last Admin: 06/14/23 08:51 Dose: 2 mg Trazodone HCl (Trazodone Hcl 50 Mg Tablet) 50 mg PO BEDTIME MRX1 PRN PRN Reason: Insomnia Last Admin: 06/14/23 01:48 Dose: 50 mg Allergies Allergies Allergy/AdvReac Type Severity Reaction Status Date / Time cat dander [CAT] Allergy Intermediate UNKNOWN Verified 06/12/23 00:57 formoterol [From Dulera] Allergy Unknown Unknown Verified 06/12/23 00:57 mometasone furoate Allergy Unknown Unknown Verified 06/12/23 00:57 [From Dulera] salmeterol Allergy Unknown Unknown Verified 06/12/23 00:57 theophylline Allergy Unknown UNKNOWN Verified 06/12/23 00:57 Assessment & Plan Assessment & Plan (1) Schizoaffective disorder, bipolar type: Status: Acute Code(s): F25.0 - Schizoaffective disorder, bipolar type Plan 37 yo male, hx of bipolar disorder, schizoaffective disorder since ~age 28 to ER reporting not feeling well. Non compliance with regime, regime being low probable precipitants. Pt acutely psychotic on the unit. Refusing increase in meds, trial of [place], Olanzapine. Plan: Increase Risperdal to 2 mg po bid Diagnostics appear intact Continue [place] offer, Lorazapem, Haldo prn 06/14: Continue current plan of care. Reason for continued inpatient stay Substantial Risk for: inability to function and rapid decompensation Time Spent With Patient Time: Total time managing care of this patient today ____ minutes.
[2023-06-14 18:00] VITALS: BP 128/68; PULSE 109; RESP 18; TEMP 36.6
[2023-06-15] MEDS: Omeprazole 20 MG CAPSULE.DR PO (06:03)
[2023-06-15 07:50] VITALS: BP 151/77; PULSE 100; RESP 18; TEMP 36.7; O2SAT 97
--- NOTE | 2023-06-15 08:09 | HO.PSYCHPN ---
Subjective Subjective Date of Service: 06/15/23 Reason For Visit: Bipolar disorder Interim History: Reports he is doing OK. He is adherent to his medications. He denies side effects. Denies SI/HI/AVH. Review of Systems Review of Systems Yes all other systems are reviewed and are negative and Unobtainable due to mental status Reports behavioral changes Psychiatric: Reports behavioral changes, Reports difficulty concentrating, Reports auditory hallucinations, Reports irritability, Reports anhedonia, Reports mood swings, Reports paranoia, Reports visual hallucinations, Reports hallucinations and Reports homicidal ideation Mental Status Exam Mental Status Exam Patient Appearance: Disheveled, Unkempt and Bizarre Patient Orientation: Person Level of Consciousness: Restless and Alert Patient Behavior: Guarded, Posturing, Suspicious, Aggressive, Restless, Verbal Threats, Fearful, Resistive to Care, Invasion - Personal Space, Distractible, Good Eye Contact and Pacing Mood Description: Apathetic, Suspicious, Withdrawn, Depressed, Fearful, Hostile, Anxious, Angry and Apprehensive Affect Description: Hostile, Labile and Angry Patient Cognition Impaired: Yes Ability to Follow Directions: Fair Speech Pattern: Perseverating, Spontaneous Speech, Rambling and Pressured Memory Description: Remote Impaired Diagnostics Vital Signs (24Hr): Vital Signs - 24 hr 06/14/23 18:00 Temperature 97.9 F Pulse Rate 109 H Respiratory Rate 18 Blood Pressure 128/68 Oxygen Delivery Method Room Air BMI result Body Mass Index 40.8 Labs 06/12/23 02:41 06/13/23 08:03 Labs: Laboratory Results - last 48 hr 06/13/23 08:03 Sodium 138 Potassium 4.1 Chloride 106 Carbon Dioxide 23 Anion Gap 13 BUN 11 Creatinine 0.92 Estim Creat Clear Calc 136.8 Estimated GFR > 60 Fasting Glucose 119 H Estimat Average Glucose 103 Hemoglobin A1c % 5.2 Calcium 10.0 D Magnesium 2.3 Total Bilirubin 1.5 H AST 39 H ALT 67 H Alkaline Phosphatase 66 Total Protein 8.1 H Albumin 4.7 Triglycerides 68 Cholesterol 120 LDL Cholesterol, Calc 69 HDL Cholesterol 38 L Vitamin B12 539 Folate 14.4 TSH 1.51 Free T4 1.13 Medications Medications Current Medications Acetaminophen (Acetaminophen 325 Mg Tablet) 650 mg PO Q6H PRN PRN Reason: Headache/Pain Mild Scale (1-3) Al Hydroxide/Mg Hydroxide (Magnesium Hydrox/Alum Hydrox 30 Ml Oral.Susp) 30 ml PO Q6H PRN PRN Reason: Heartburn/Nausea Fluticasone/Vilanterol (Fluticasone/Vilanterol 100/25 Blst.W.Dev) 1 puff INHALE RDAILY [facility] Last Admin: 06/14/23 08:59 Dose: 1 puff Haloperidol (Haloperidol 5 Mg Tablet) 5 mg PO Q4H PRN PRN Reason: psychosis Last Admin: 06/14/23 09:06 Dose: 5 mg Hydroxyzine HCl (Hydroxyzine Hcl 25 Mg Tablet) 25 mg PO Q6H PRN PRN Reason: Anxiety [place] Carbonate ([place] Carbonate 300 Mg Capsule) 300 mg PO BID [facility] Last Admin: 06/14/23 19:58 Dose: 300 mg Lorazepam (Lorazepam 1 Mg Tablet) 1 mg PO Q4H PRN PRN Reason: agitation Last Admin: 06/14/23 19:57 Dose: 1 mg Magnesium Hydroxide (Milk Of Magnesia 30 Ml Oral.Susp) 30 ml PO DAILY PRN PRN Reason: Constipation Omeprazole (Omeprazole 20 Mg Capsule.Dr) 20 mg PO DAILY@0630 [facility] Last Admin: 06/15/23 06:03 Dose: 20 mg Risperidone (Risperidone 2 Mg Tablet) 2 mg PO BID [facility] Last Admin: 06/14/23 19:58 Dose: 2 mg Trazodone HCl (Trazodone Hcl 50 Mg Tablet) 50 mg PO BEDTIME MRX1 PRN PRN Reason: Insomnia Last Admin: 06/14/23 01:48 Dose: 50 mg Allergies Allergies Allergy/AdvReac Type Severity Reaction Status Date / Time cat dander [CAT] Allergy Intermediate UNKNOWN Verified 06/12/23 00:57 formoterol [From Dulera] Allergy Unknown Unknown Verified 06/12/23 00:57 mometasone furoate Allergy Unknown Unknown Verified 06/12/23 00:57 [From Dulera] salmeterol Allergy Unknown Unknown Verified 06/12/23 00:57 theophylline Allergy Unknown UNKNOWN Verified 06/12/23 00:57 Assessment & Plan Assessment & Plan (1) Schizoaffective disorder, bipolar type: Status: Acute Code(s): F25.0 - Schizoaffective disorder, bipolar type Plan 37 yo male, hx of bipolar disorder, schizoaffective disorder since ~age 28 to ER reporting not feeling well. Non compliance with regime, regime being low probable precipitants. Pt acutely psychotic on the unit. Refusing increase in meds, trial of [place], Olanzapine. Plan: Increase Risperdal to 2 mg po bid Diagnostics appear intact Continue [place] offer, Lorazapem, Haldo prn 06/14: Continue current plan of care. 06/15: Continue current plan. Reason for continued inpatient stay Substantial Risk for: inability to function and rapid decompensation Time Spent With Patient Time: Total time managing care of this patient today ____ minutes.
[2023-06-15] MEDS: risperiDONE 2 MG TABLET PO ×2 (08:34→20:02)
[2023-06-15] MEDS: Lithium Carbonate 300 MG CAPSULE PO ×2 (08:34→20:02)
[2023-06-15] MEDS: Fluticasone/Vilanterol 100/25 BLST.W.DEV 1 PUFF INHALE (08:35)
[2023-06-15 18:00] VITALS: BP 150/69; PULSE 110; RESP 18; TEMP 36.6; O2SAT 97
[2023-06-16] MEDS: Omeprazole 20 MG CAPSULE.DR PO (06:54)
[2023-06-16 08:15] VITALS: BP 141/81; PULSE 110; RESP 18; TEMP 35.9; O2SAT 96
--- NOTE | 2023-06-16 09:53 | HO.PSYCHPN ---
Subjective Subjective Date of Service: 06/16/23 Reason For Visit: Bipolar disorder Interim History: met with patient; discussed with team; reviewed chart Patient calm, friendly and polite. He has with organized speech behavior and has been throughout the weekend. Patient reports he is feeling much better and that the medications have helped. He says he is normally only been on Risperdal 0.5 mg b.i.d. which has been sufficient and he thinks that he became disorganized last week because he started drinking alcohol something which he normally only does occasionally; last week he says he was struggling to tell what was real and what was imagine and in his mind but that all this has fully resolved and he feels back to his regular self.. Maintains that he was taking his medications but admits he probably missed a few doses here and there. Patient denies any AVH or any paranoid thinking. He used to be on lithium in the past which he found helpful and property underwriter reviewed risks/side effects of this medication. Patient was wondering if he needs to be on both Risperdal and lithium; he is fine with remaining on both at current doses for now and has a good relationship with his outpatient psychiatric provider with whom he will confer. Apparently normally when he goes to the hospital his medications are increased and that his outpatient provider adjust them and lowers them as clinically indicated. Patient's 3 day notice is coming due and he feels ready to return home where he lives with his parents. He shares that he has done drinking alcohol and that he is going to limit himself to just working 1 job instead of 2. He feels that the stressors for contributory. Patient is sleeping well on the unit. Mental Status Exam Mental Status Exam Narrative: Pt is alert and oriented; behavior is cooperative, friendly and calm; patient is not in distress; dressed in casual attire with unkempt hair and breaux but adequate hygiene; mood is described as good and affect congruent; eye contact appropriate; Speech is normal rate, volume and prosody and not pressured; no psychomotor agitation/retardation present; thought process is organized and goal directed; Thought content is on tx; otherwise pertinent to relevant topics and without any delusional content, paranoid ideations or grandiosity; denies any SI/HI. There is no evidence of perceptual disturbance. Patients insight and judgment appear intact. Diagnostics Vital Signs (24Hr): Vital Signs - 24 hr 06/15/23 18:00 06/16/23 08:15 Temperature 97.9 F 96.7 F L Pulse Rate 110 H 110 H Respiratory Rate 18 18 Blood Pressure 150/69 H 141/81 H Pulse Oximetry 97 96 Oxygen Delivery Method Room Air Room Air BMI result Body Mass Index 40.8 Labs 06/12/23 02:41 06/13/23 08:03 Medications Medications Current Medications Acetaminophen (Acetaminophen 325 Mg Tablet) 650 mg PO Q6H PRN PRN Reason: Headache/Pain Mild Scale (1-3) Al Hydroxide/Mg Hydroxide (Magnesium Hydrox/Alum Hydrox 30 Ml Oral.Susp) 30 ml PO Q6H PRN PRN Reason: Heartburn/Nausea Fluticasone/Vilanterol (Fluticasone/Vilanterol 100/25 Blst.W.Dev) 1 puff INHALE RDAILY [facility] Last Admin: 06/15/23 08:35 Dose: 1 puff Haloperidol (Haloperidol 5 Mg Tablet) 5 mg PO Q4H PRN PRN Reason: psychosis Last Admin: 06/14/23 09:06 Dose: 5 mg Hydroxyzine HCl (Hydroxyzine Hcl 25 Mg Tablet) 25 mg PO Q6H PRN PRN Reason: Anxiety [place] Carbonate ([place] Carbonate 300 Mg Capsule) 300 mg PO BID [facility] Last Admin: 06/15/23 20:02 Dose: 300 mg Lorazepam (Lorazepam 1 Mg Tablet) 1 mg PO Q4H PRN PRN Reason: agitation Last Admin: 06/14/23 19:57 Dose: 1 mg Magnesium Hydroxide (Milk Of Magnesia 30 Ml Oral.Susp) 30 ml PO DAILY PRN PRN Reason: Constipation Omeprazole (Omeprazole 20 Mg Capsule.Dr) 20 mg PO DAILY@0630 [facility] Last Admin: 06/16/23 06:54 Dose: 20 mg Risperidone (Risperidone 2 Mg Tablet) 2 mg PO BID [facility] Last Admin: 06/15/23 20:02 Dose: 2 mg Trazodone HCl (Trazodone Hcl 50 Mg Tablet) 50 mg PO BEDTIME MRX1 PRN PRN Reason: Insomnia Last Admin: 06/14/23 01:48 Dose: 50 mg Allergies Allergies Allergy/AdvReac Type Severity Reaction Status Date / Time cat dander [CAT] Allergy Intermediate UNKNOWN Verified 06/12/23 00:57 formoterol [From Dulera] Allergy Unknown Unknown Verified 06/12/23 00:57 mometasone furoate Allergy Unknown Unknown Verified 06/12/23 00:57 [From Dulera] salmeterol Allergy Unknown Unknown Verified 06/12/23 00:57 theophylline Allergy Unknown UNKNOWN Verified 06/12/23 00:57 Assessment & Plan Assessment & Plan (1) Schizoaffective disorder, bipolar type: Status: Acute Code(s): F25.0 - Schizoaffective disorder, bipolar type Plan 37 yo male, hx of bipolar disorder, schizoaffective disorder since ~age 28 to ER reporting not feeling well. Non compliance with regime, regime being low probable precipitants. Pt acutely psychotic on the unit. Refusing increase in meds, trial of [place], Olanzapine. Hospital course: 06/14: Continue current plan of care. 06/15: Continue current plan. 06/16: Patient calm, friendly and polite. He has with organized speech behavior and has been throughout the weekend. Patient reports he is feeling much better and that the medications have helped. He says he is normally only been on Risperdal 0.5 mg b.i.d. which has been sufficient and he thinks that he became disorganized last week because he started drinking alcohol something which he normally only does occasionally; last week he says he was struggling to tell what was real and what was imagine and in his mind but that all this has fully resolved and he feels back to his regular self.. Maintains that he was taking his medications but agrees that he probably missed a few doses here and there. Patient denies any AVH or any paranoid thinking. He used to be on lithium in the past which he found helpful and property underwriter reviewed risks/side effects of this medication. Patient was wondering if he needs to be on both Risperdal and lithium; he is fine with remaining on both at current doses for now and has a good relationship with his outpatient psychiatric provider with whom he will confer. Apparently normally when he goes to the hospital his medications are increased and that his outpatient provider adjust them and lowers them as clinically indicated. Patient's 3 day notice is coming due and he feels ready to return home where he lives with his parents. He shares that he has done drinking alcohol and that he is going to limit himself to just working 1 job instead of 2. He feels that the stressors for contributory. Patient is sleeping well on the unit. Patient's brother provided some collateral saying that patient's presentation is typical when he stops taking medications; his brother says patient has some paranoid suspicions at baseline however none were expressed or could be solicited at this time. -patient appears to be back to his baseline and he is returning to live with his supportive parents. Patient has outpatient provider already established and agrees to get a therapist as well. His 3 day notice is due tomorrow. Patient does not rise to the level of involuntary commitment. He is not in imminent risk for harm to self or others and his request for discharge honored. Plan: Increase Risperdal to 2 mg po bid Diagnostics appear intact Continue [place] offer, Lorazapem, Haldo prn Patient educated on: diagnosis, medication risk/benefits, substance abuse and therapeutic strategies Informed Consent: understands Reason for continued inpatient stay Substantial Risk for: stable for discharge Time Spent With Patient Time: Total time managing care of this patient today ____ minutes.
[2023-06-16] MEDS: risperiDONE 2 MG TABLET PO ×2 (10:34→21:32)
[2023-06-16] MEDS: Lithium Carbonate 300 MG CAPSULE PO ×2 (10:34→21:32)
[2023-06-16] MEDS: Fluticasone/Vilanterol 100/25 BLST.W.DEV 1 PUFF INHALE (10:35)
[2023-06-16 18:00] VITALS: BP 135/85; PULSE 98; RESP 16; TEMP 36.6; O2SAT 96
[2023-06-16] MEDS: LORazepam 1 MG TABLET PO (21:32)
[2023-06-17 06:00] VITALS: BP 150/95; PULSE 100; RESP 16; O2SAT 99
[2023-06-17] MEDS: Omeprazole 20 MG CAPSULE.DR PO (06:46)
[2023-06-17] MEDS: Lithium Carbonate 300 MG CAPSULE PO (08:09)
[2023-06-17] MEDS: Fluticasone/Vilanterol 100/25 BLST.W.DEV 1 PUFF INHALE (08:10)
[2023-06-17] MEDS: risperiDONE 2 MG TABLET PO (08:10)
--- NOTE | 2023-06-17 08:55 | P.DS_ITS ---
DS: Providers Provider Date of Service: 06/17/23 Date of admission: 06/12/23 15:50 Date of discharge: 06/17/23 Primary care physician: Unknown Physician Admitting clinician: Karen Johns Attending physician on discharge: Krishna Middleton DS: Diagnosis Discharge Diagnosis (1) Schizoaffective disorder, bipolar type: Status: Acute DS: Medications Discharge Medications Home Medications: Home Medications Medication Instructions Recorded Confirmed fluticasone furoate 100 1 ea inhalation DAILY 06/12/23 06/12/23 mcg-vilanterol 25 mcg/dose inhalation powder (Breo Ellipta) lansoprazole 30 mg capsule,delayed 30 mg PO DAILY 06/12/23 06/12/23 release Previous Rx's Medication Instructions Recorded haloperidol 5 mg tablet 5 mg PO BID PRN agitation 30 days 06/17/23 #10 tabs lithium carbonate 300 mg capsule 300 mg PO BID 30 days #60 caps 06/17/23 risperidone 2 mg tablet 2 mg PO BID 30 days #60 tabs 06/17/23 Mental Status Exam Mental Status Exam Narrative: Pt is alert and oriented; behavior is cooperative, friendly and calm; patient is not in distress; dressed in casual attire with unkempt hair and breaux but adequate hygiene; mood is described as good and affect congruent; eye contact appropriate; Speech is normal rate, volume and prosody and not pressured; no psychomotor agitation/retardation present; thought process is organized and goal directed; Thought content is on tx; otherwise pertinent to relevant topics and without any delusional content, paranoid ideations or grandiosity; denies any SI/HI. There is no evidence of perceptual disturbance. Patients insight and judgment are intact. Data Data Completed and Pending Completed studies during hospitalization [Text1]: 06/12/23 06/12/23 06/12/23 01:43 01:55 02:41 WBC 6.8 RBC 5.47 Hgb 15.9 Hct 43.7 MCV 79.9 L MCH 29.1 MCHC 36.4 H RDW 12.5 Plt Count 242 MPV 9.4 Immature Gran % (Auto) 0.4 Neut % (Auto) 51.7 Lymph % (Auto) 31.6 [place] % (Auto) 13.0 H Eos % (Auto) 2.7 Baso % (Auto) 0.6 Lymph # (Auto) 2.1 [place] # (Auto) 0.9 Eos # (Auto) 0.2 Baso # (Auto) 0.0 Abs Immat Gran (auto) 0.03 Absolute Neuts (auto) 3.5 Absolute Nucleated RBC 0.000 Nucleated RBC % (auto) 0.0 Sodium 135 Potassium 3.7 Chloride 103 Carbon Dioxide 21 L Anion Gap 15 BUN 13 Creatinine 0.94 Estim Creat Clear Calc 133.9 Estimated GFR > 60 Random Glucose 118 H Fasting Glucose Estimat Average Glucose Hemoglobin A1c % Calcium 9.3 Magnesium Total Bilirubin 0.9 AST 39 H ALT 60 H Alkaline Phosphatase 64 Total Protein 7.3 Albumin 4.3 Triglycerides Cholesterol LDL Cholesterol, Calc HDL Cholesterol Vitamin B12 Folate TSH Free T4 Urine Color Yellow Urine Appearance Clear Urine pH 6.0 Ur Specific Christine 1.010 Urine Protein Negative Urine Glucose (UA) Negative Urine Ketones Negative Urine Blood Negative Urine Nitrite Negative Ur Leukocyte Esterase Negative Urine Opiates Screen Not Detected Urine Fentanyl Screen Not Detected Ur Barbiturates Screen Not Detected Ur Phencyclidine Scrn Not Detected Ur Amphetamines Screen Not Detected U Benzodiazepines Scrn Not Detected [place] Urine Cocaine Screen Not Detected U Marijuana (THC) Screen Not Detected Ethyl Alcohol < 10 COVID-19 (FRAN) Negative COVID-19 Clin Com See Note 06/13/23 06/17/23 08:03 07:49 WBC RBC Hgb Hct MCV MCH MCHC RDW Plt Count MPV Immature Gran % (Auto) Neut % (Auto) Lymph % (Auto) [place] % (Auto) Eos % (Auto) Baso % (Auto) Lymph # (Auto) [place] # (Auto) Eos # (Auto) Baso # (Auto) Abs Immat Gran (auto) Absolute Neuts (auto) Absolute Nucleated RBC Nucleated RBC % (auto) Sodium 138 Potassium 4.1 Chloride 106 Carbon Dioxide 23 Anion Gap 13 BUN 11 Creatinine 0.92 Estim Creat Clear Calc 136.8 Estimated GFR > 60 Random Glucose Fasting Glucose 119 H Estimat Average Glucose 103 Hemoglobin A1c % 5.2 Calcium 10.0 D Magnesium 2.3 Total Bilirubin 1.5 H AST 39 H ALT 67 H Alkaline Phosphatase 66 Total Protein 8.1 H Albumin 4.7 Triglycerides 68 Cholesterol 120 LDL Cholesterol, Calc 69 HDL Cholesterol 38 L Vitamin B12 539 Folate 14.4 TSH 1.51 Free T4 1.13 Urine Color Urine Appearance Urine pH Ur Specific Christine Urine Protein Urine Glucose (UA) Urine Ketones Urine Blood Urine Nitrite Ur Leukocyte Esterase Urine Opiates Screen Urine Fentanyl Screen Ur Barbiturates Screen Ur Phencyclidine Scrn Ur Amphetamines Screen U Benzodiazepines Scrn [place] Pending Urine Cocaine Screen U Marijuana (THC) Screen Ethyl Alcohol COVID-19 (FRAN) COVID-19 Clin Com DS: Summary Hospital Course Hospital Course: HPI: 37 yo male, history of schizoaffective disorder, bipolar type. Presented to ER reporting feeling unwell. Reports he missed a dose of Risperdal. Presents with paranoia, internal preoccupation, disorganization. Hx of engaging in risky behaviors, hx of driving family car into [facility] when manic, hx of being missing for periods of time. Reports hx of perceptual alterations. Pt is paranoid and disorganized on the unit. When approached to meet, he appeared frightenend then angry. You are the IT Clown-I need to kill you. Oriented pt and he then apologized, No , you are my sister in law, Lizbet . Oriented pt, he again apologized and stated that he could not meet as he was afraid. Team has reached out to pt's brother, officer Chin Conn, who reports current regime to not be strong enough. At baseline pt is reported to be suspicious. Symptoms began at age 28. Pt diagnosed with both bipolar, keven and schizoaffective, bipolar type. Brief check in with pt to reassure him. He is conflicted with team, conflicted with Risperdone vs Risperdal and what do do. Assured him of our efforts to help him with safety and treatment. Hospital course: On admission patient was paranoid with disorganized behavior and initially had difficulty participating in interview. He was restarted on lithium and his Risperdal was increased from 0.5 mg b.i.d. to 2 mg b.i.d. patient was adherent with medication and his behaviors soon come down, paranoia subsided and patient remained in good behavioral and impulse control throughout his time in the unit. Patient signed a 3 day notice Patient's 3 day notice was coming due. He remained calm, friendly and polite, with organized speech and behavior which he demonstrated throughout the weekend. Patient reports he is feeling much better and that the medications have helped. He says he is normally stable on only Risperdal 0.5 mg b.i.d. which has been sufficient and he thinks that he became disorganized last week because he started drinking alcohol something which he normally only does occasionally; denies other drug use. He was able to reflect on the week prior to coming to the unit and says he was struggling to tell what was real and what was imagined in his mind but that all this has fully resolved and he feels back to his regular self. He Maintains that he was taking his medications but agrees that he probably missed a few doses here and there. Patient denies any AVH or any paranoid thinking. He used to be on lithium in the past which he found helpful and keno writer / runner reviewed risks/side effects of this medication. Patient was wondering if he needs to be on both Risperdal and lithium. [employer] agrees that if he is been able to remain stable on only Risperdal 0.5 mg b.i.d. that he may indeed perhaps be able to tolerate monotherapy. However since patient is newly stabilized keno writer / runner rib strongly recommends continuing current medication regimen. Patient says he is fine with remaining on both med at current doses for now and has a good relationship with his outpatient psychiatric provider with whom he will confer. Apparently normally when he goes to the hospital his medications are increased and that his outpatient provider adjust them and lowers them as clinically indicated. Patient requesting discharge. He feels he is back to his regular self and ready to return home where he lives with his parents. He shares that he is done drinking alcohol and that he is going to limit himself to just working 1 job instead of 2. He feels that these stressors were contributory. Patient is sleeping well on the unit. Patient's brother provided some collateral saying that patient's presentation is typical when he stops taking medications; his brother says patient has some paranoid suspicions at baseline however none were expressed or could be solicited at this time. Patient is back to his baseline and returning to live with his supportive parents. He has outpatient provider already established and agrees to get a therapist as well. His 3 day notice is due tomorrow and Patient does not rise to the level of involuntary commitment. He is not in imminent risk for harm to self or others and his request for discharge honored. Time spent discussing smoking cessation with patient: 3 to 10 minutes Status at Discharge Functional status at discharge: independent ambulation Overall status at discharge: patient is back to baseline Time Spent with Patient Time attestation: Total time managing care of this patient today ____ minutes. Time spent: Less than 30 minutes Discharge Plan Discharge Anticipated Discharge Date/Time: 06/17/23 11:30 Patient Disposition: Home, Self-Care Discharge Diagnosis: Schizoaffective disorder, bipolar type Referrals: Physician,Unknown J [Primary Care Provider] - 1 Week Discharge Medications: New lithium carbonate 300 mg Capsule 300 mg PO BID 30 Days Qty: 60 0RF haloperidol 5 mg Tablet 5 mg PO BID PRN (Reason: agitation) 30 Days Qty: 10 0RF Continued lansoprazole 30 mg capsule,delayed release(DR/EC) 30 mg PO DAILY fluticasone furoate-vilanterol [Breo Ellipta] 100-25 mcg/dose blister with device 1 ea inhalation DAILY Changed risperidone 2 mg tablet 2 mg PO BID 30 Days Qty: 60 0RF Discharge Orders: Discharge Order (Routine); Ordered 06/17/23 Ordered By: Krishna Middleton Diet: Regular diet Activity on Discharge: As tolerated Stand Alone Forms: Patient Portal Discharge page Care Plan Goals: Maintain mood and safe behaviors Take medications as prescribed Continue to pursue sobriety Practice coping skills Continue with outpatient providers and reach out to them as needed Health Concerns: Mood stability and behaviors Sobriety GERD Plan of Treatment: Follow up with your PCP, psychiatric provider and other outpatient providers regarding above concerns Take medications as prescribed Assessment: Risk assessment at time of discharge:? Patient was interviewed prior to discharge and found to be fully oriented and without any SI or HI. Patient has improved insight and judgment and wants to continue treatment. Patient is not in imminent risk of harm to self or others and has a safety plan that includes presenting to the closest ER or calling 911 if feeling unsafe.? Patient has been observed closely by nursing and unit staff throughout admission; patient has not engaged in any behaviors that suggest dangerousness to self or others and has demonstrated appropriate behaviors and impulse control
[2023-06-17 08:58] LABS: Lithium 0.21 mmol/L (0.60-1.20)
== END 2023-06-17 11:42 | disposition home or self-care (01) | DRG 750 ==
LOC: HO.ED 07:20 → HO.PM5 15:55
PROVIDERS: Clinical Nurse Specialist Psychiatric/Mental Health, Adult; Internal Medicine; Admitting Provider Psychiatry & Neurology Psychiatry; Emergency Provider Emergency Medicine Emergency Medical Services; Visit Provider Psychiatry & Neurology Psychiatry
DX: F25.0 Schizoaffective disorder, bipolar type (principal); Z20.822 Contact with and (suspected) exposure to COVID-19; Z79.51 Long term (current) use of inhaled steroids; Z79.899 Other long term (current) drug therapy
CPT/HCPCS: 36415; 80053; 80061; 80178; 80307; 81003; 82607; 82746; 83036; 83735; 84439; 84443; 85025; 87635; 93005; 99285; S9485

== ENCOUNTER → 2023-06-12 15:50 | Outpatient (BNV) | payer OTHER, SELFPAY | PROVIDERS: Admitting Provider Psychiatry & Neurology Psychiatry; Emergency Provider Emergency Medicine Emergency Medical Services; Visit Provider Psychiatry & Neurology Psychiatry | DX: F25.0 Schizoaffective disorder, bipolar type (principal) | CPT/HCPCS: 90792; 99231; 99232; 99238 ==

== ENCOUNTER 2023-09-17 11:15 | Outpatient (AMB) | payer OTHER, SELFPAY ==
--- NOTE | 2023-09-17 11:17 | MHC.PC.OV ---
Vital Signs 09/17/23 11:20 Height 5 ft 7 in Weight 274 lb 6 oz BMI 43.0 BP 130/96 H Blood Pressure Location Lt brachial Position Sitting Pulse 108 H Pulse Source Pulse Oximeter Pulse Oximetry (%) 96 Oxygen Delivery Method Room Air Intake Visit Reasons: Annual PE/ eye issues Intake Note: Pt is here for his Annual PE Allergies cat dander [CAT] Allergy (Intermediate, Verified 09/17/23 11:25) UNKNOWN formoterol [From Dulera] Allergy (Unknown, Verified 09/17/23 11:25) Unknown mometasone furoate [From Dulera] Allergy (Unknown, Verified 09/17/23 11:25) Unknown salmeterol Allergy (Unknown, Verified 09/17/23 11:25) Unknown theophylline Allergy (Unknown, Verified 09/17/23 11:25) UNKNOWN Medication List - Last Reconciled 09/17/23 by Jason Iqbal, [employer] brinzolamide-brimonidine 1-0.2 % (Simbrinza) 1 drp ophthalmic (eye) TID fluticasone furoate-vilanterol 100-25 mcg/dose (Breo Ellipta) 1 ea inhalation DAILY haloperidol 5 mg PO BID PRN 30 days lansoprazole 30 mg PO DAILY risperidone 3 mg PO BEDTIME Tobacco use date assessed: 09/17/23 Dental Screening Dental Screen Date: 09/17/23 Did you have a dental visit in the last 12 months?: Yes Did you have a dental problem in the last 6 months where you did not have access to dental care?: No Was dental information given to patient?: Patient has dentist HPI Annual PE/ eye issues HPI Details Pt is here for a PE. Will order labs. Pt's blood pressure is elevated today. He has had elevated readings in the past as well. Will start losartan 25mg. Will have pt monitor his BP at home and drop off readings. Denies chest pain, shortness of breath, headache, dizziness, and blurred vision. Pt has a psychiatrist who he sees every 1.5 months and a therapist who he sees monthly. Pt reports a mass between his left anterior cervical and submental region. ? lipoma vs lymph node. Will order US. Pt mother/advocate is in the room today. [facility] Medical History Schizoaffective disorder, bipolar type Mild intermittent asthma without complication Anxiety and depression Dorsalgia Surgical History No pertinent past surgical history Family History Father No problems noted. Mother HTN (hypertension) Diabetes mellitus Maternal Grandmother Diabetes mellitus Cancer Maternal Grandfather No problems noted. Brother No problems noted. Social History Household Members: Other Household Members Other:: parents Housing: House Do you presently have visiting nurse or other home services: No Patient Tobacco Use Status: Never used Tobacco e-Cigarette/Vaping Use: Never Used Second Hand Smoke Exposure: Yes service: No Current occupational status: employed Current occupation: [employer] Current occupational exposures/hazards: No Sexual orientation: Straight/Heterosexual Questionnaire PHQ-9 Over the last 2 weeks, how often have you been bothered by any of the following problems? 1. Little interest or pleasure in doing things: not at all 2. Feeling down, depressed, or hopeless: not at all 3. Trouble falling or staying asleep, or sleeping too much: not at all 4. Feeling tired or having little energy: not at all 5. Poor appetite or overeating: not at all 6. Feeling bad about yourself - or that you are a failure or have let yourself or your family down: not at all 7. Trouble concentrating on things, such as reading the newspaper or watching television: not at all 8. Moving or speaking so slowly that other people could have noticed. Or the opposite - being so fidgety or restless that you have been moving around a lot more than usual: not at all 9. Thoughts that you would be better off or of hurting yourself in some way: not at all Total score: 0 Source: Developed by Drs. Torres Tony, Dulce Maria Robles, Zachary Granado and colleagues, with an educational grace from [employer]. Thrive Questionnaire Date Thrive assessed: 09/17/23 I am a: Patient What is your living situation today?: I have a steady place to live Within the past 12 months, did the food you bought not last and you didn't have the money to get more?: Never true Within the past 12 months, did you worry whether your food would run out before you got money to buy more?: Never true Do you have trouble paying for medicines?: No Do you have trouble getting transportation to medical appointments?: No Do you have trouble paying your heating and electricity bill?: No Do you have trouble taking care of your child, family member or friend?: No Do you have trouble with day-to-day activities such as bathing, preparing meals, shopping, managing finances, etc.?: No Are you currently unemployed and looking for a job?: No Are you interested in more education?: No THRIVE Score: 0 AUDIT C Alcohol Use Questionnaire (AUDIT-C) 1. How often do you have a drink containing alcohol?: Never Total Score: 0 ALYSIA-7 AMB Questionnaire ALYSIA-7 Date ALYSIA - 7 assessed: 09/17/23 Feeling nervous, anxious, or on edge: 0 = Not at all Not being able to stop or control worryin = Not at all Worrying too much about different things: 0 = Not at all Trouble relaxin = Not at all Being so restless that it is hard to sit still: 0 = Not at all Becoming easily annoyed or irritable: 0 = Not at all Feeling afraid as if something awful might happen: 0 = Not at all Total ALYSIA-7 score (0-4 normal; 5-9 mild; 10-14 moderate; 15-21 severe): 0 Source: Developed by Drs. Torres Tony, Dulce Maria Robles, Zachary Granado and colleagues, with an educational grace from [employer]. Review of Systems Const Denies chills and Denies fever(s) Eyes Denies blurry vision ENT Denies vertigo, Denies dizziness and Denies sore throat Card Denies chest pain at rest, Denies chest pain with activity, Denies diaphoresis, Denies dyspnea and Denies dyspnea on exertion Resp Denies cough, Denies dyspnea, Denies dyspnea on exertion and Denies wheezing GI Denies abdominal pain, Denies melena, Denies hematochezia, Denies constipation, Denies diarrhea and Denies loose stools Denies hematuria Musc Denies numbness and Denies tingling Skin/Breast Denies lesions Neuro Denies vertigo, Denies dizziness, Denies numbness and Denies tingling Psych Denies anxiety, Denies depression, Denies homicidal ideation, Denies suicidal ideation and Denies other (substance abuse) Aller/Immun Denies wheezing Physical exam (Primary Care) Vital Signs: Last Vital Signs Pulse 108 H 09/17/23 11:20 BP 130/96 H 09/17/23 11:20 Pulse Ox 96 09/17/23 11:20 Oxygen Delivery Method Room Air 09/17/23 11:20 BMI result Body Mass Index 43.0 Tobacco/Smoking Status: Tobacco use Status Tobacco use date assessed 09/17/23 09/17/23 11:29 Patient Tobacco Use Status Never used Tobacco 09/17/23 11:18 e-Cigarette/Vaping Use Never Used 09/17/23 11:29 Thrive Assessment: Date of Thrive Assessment Date Thrive assessed 06/13/23 09/17/23 11:18 Const General: cooperative Nutritional Appearance: well nourished Orientation/consciousness: patient oriented x3 HENMT Head: Yes normal to inspection, Yes normocephalic and Yes atraumatic Ears: TM's normal bilaterally Eyes General: appearance normal, both eyes and all related structures Alignment and Position: alignment normal and position normal Neck Other: between left anterior cervical and left submental region with large oval shaped mass, ? lipoma vs lymph node Thyroid: Thyroid normal Resp Effort & Inspection: normal respiratory effort Auscultation: clear to auscultation bilaterally Cardio Rate: regular rate Rhythm: regular rhythm Heart sounds: S1 normal heart sound present, S2 normal heart sound present and no murmurs GI Palpation (GI): Soft to palpation and nontender Auscultation: normal bowel sounds Male General Exam: Yes normal external exam Penis: normal penis Scrotum: scrotum normal, testes descended bilaterally and no inguinal hernias Testes: no testicular mass Skin Rashes: no rashes Neuro General: patient oriented x3, moves all extremities, no focal motor deficits and deep tendon reflexes 2+ bilaterally Romberg Test: Negative Psych Appearance: grossly normal Mental Status: mental status grossly normal Speech and movement: Normal speech and movement present Affect: normal affect Attitude: cooperative Thought process: Normal thought process present Thought content: Normal thought content present Insight: Good insight present (Psych) Judgement: Good judgement present (Psych) Assessment and Plan Assessment & Plan (1) Physical exam: Code(s): Z00.00 - Encounter for general adult medical examination without abnormal findings Plan: Labs ordered (2) Lesion of neck: Code(s): L98.9 - Disorder of the skin and subcutaneous tissue, unspecified Plan: US ordered (3) HTN (hypertension): Code(s): I10 - Essential (primary) hypertension Plan: Starting losartan, pt to monitor BP at home Plan The patient agreed to the use of a medical billing coordinator for this encounter. Scribed for DEX Lawler by Nella Ellison medical billing coordinator, on 09/17/2023 at 11:50 EST. Orders: Orders Complete Blood Count Auto Diff Today Z00.00 - Encounter for general adult medical examination without abnormal findings Comprehensive [place]. Panel Fast Today Z00.00 - Encounter for general adult medical examination without abnormal findings UA CC w/rflx Micro + Cult Today Z00.00 - Encounter for general adult medical examination without abnormal findings Lipid Panel Today Z00.00 - Encounter for general adult medical examination without abnormal findings TSH reflex Free T4 Today Z00.00 - Encounter for general adult medical examination without abnormal findings US soft tiss head and/or neck Today L98.9 - Disorder of the skin and subcutaneous tissue, unspecified Medications: New losartan 25 mg PO DAILY 90 days 90 tabs 0RF Coding Level of Care Code Est Pt Prev Care 40-64y(40265) Diagnoses Physical exam Z00.00 Lesion of neck L98.9 HTN (hypertension) I10
[2023-09-17 11:20] VITALS: BP 130/96; PULSE 108; O2SAT 96; BMI 43.0
== END 2023-09-17 12:11 | disposition home or self-care (01) ==
PROVIDERS: PCP Nurse Practitioner Family; Visit Provider Nurse Practitioner Family
DX: Z00.00 Encounter for general adult medical examination without abnormal findings (principal); L98.9 Disorder of the skin and subcutaneous tissue, unspecified; I10 Essential (primary) hypertension
CPT/HCPCS: 99396

== ENCOUNTER 2023-09-30 15:18 | Outpatient (REF) | payer OTHER, SELFPAY ==
--- NOTE | ~2023-09-30 | US_ITS ---
EXAMINATION: US SOFT TISSUE NECK CLINICAL INFORMATION: Disorder of the skin and subcutaneous tissue, unspecified (between left anterior cervical and submental region). COMPARISON: None available. TECHNIQUE: Ultrasound of the neck soft tissues was performed with high- frequency garcía-scale imaging and color Doppler in the left submental/anterior cervical neck region. FINDINGS: Corresponding to palpable abnormality is a 2.8 x 3.9 x 1.6 cm fairly isoechoic oblong superficial lesion which demonstrates some internal linear echogenicities and no color flow. No other abnormality is identified in this region. No well-defined fluid collection. No abnormal color Doppler flow. US/US soft tiss head and/or neck IMPRESSION: Palpable abnormality corresponds with a suspected lipoma. The imaging appearance of lipomas by ultrasound is however relatively nonspecific. Consider followup MRI at a later date if the patient reports continued growth of the lesion, increased firmness, increased pain, or decreased lesion mobility.
== END 2023-09-30 15:19 | disposition home or self-care (01) ==
LOC: HO.HMGCX 15:18
PROVIDERS: PCP Nurse Practitioner Family; Visit Provider Nurse Practitioner Family
DX: L98.9 Disorder of the skin and subcutaneous tissue, unspecified (principal)
CPT/HCPCS: 76536

== ENCOUNTER 2024-01-03 06:33 | Outpatient (REF) | payer OTHER, SELFPAY ==
[2024-01-03 11:08] LABS: MANUAL DIFF FLAG NO
[2024-01-03 11:13] LABS: Basophils Absolute Auto 0.1 X10*3/uL (0.0-0.2); Basophils Percent Auto 0.8 % (0-2); Eosinophils Absolute Auto 0.2 X10*3/uL (0.0-0.4); Eosinophils Percent Auto 3.6 % (0-4); Hematocrit 45.8 % (42.0-52.0); Hemoglobin 15.9 g/dl (14.0-18.0); Imm Gran Abs Auto 0.02 X10*3/uL (0.00-0.03); Imm Gran Pct Auto 0.3 % (0.0-0.4); Lymphocytes Absolute Auto 2.2 X10*3/uL (1.2-4.9); Lymphocytes Percent Auto 35.4 % (20-40); Mean Corpuscular HGB Conc 34.7 g/dl (31.0-36.0); Mean Corpuscular Hemoglobin 28.5 pg (27.0-33.0); Mean Corpuscular Volume 82.1 fL (80.0-98.0); Mean Platelet Volume 10.4 fL (9.4-12.4); Monocytes Absolute Auto 0.7 X10*3/uL (0.1-1.2); Monocytes Percent Auto 11.7 % (2-11); Neutrophils Absolute Auto 2.9 x10*3/uL (2.0-8.3); Neutrophils Percent Auto 48.2 % (45-73); Platelet Count 247 X10*3/uL (160-400); Red Blood Count 5.58 X10*6/uL (4.60-5.80); Red Cell Distribution Width 13.2 % (11.0-16.0); White Blood Count 6.1 X10*3/uL (4.8-10.8)
[2024-01-03 11:30] LABS: Alanine Aminotransferase 72 U/L (0-40); Albumin Level 4.4 g/dL (3.5-5.0); Alkaline Phosphatase 71 U/L (39-117); Anion Gap 12 (12-20); Aspartate Amino Transferase 39 U/L (5-37); Bilirubin Total 1.3 mg/dL (0.0-1.0); Blood Urea Nitrogen 14 mg/dL (9-16); Calcium 9.3 mg/dL (8.4-10.2); Carbon Dioxide 25 mmol/L (22-29); Chloride 106 mmol/L (96-108); Cholesterol 128 mg/dL (<200); Estimated Glomerular Filt Rate > 60; Glucose Fasting 107 mg/dL (60-99); HDL Cholesterol 37 mg/dL (>40); LDL Cholesterol Calculated 77 mg/dL (<100); Sodium 139 mmol/L (135-145); Total Protein 7.3 g/dL (6.5-8.0); Triglycerides 74 mg/dL (<150)
[2024-01-03 11:47] LABS: TSH reflex Free T4 1.81 uIU/mL (0.32-4.0)
== END 2024-01-03 06:34 | disposition home or self-care (01) ==
LOC: HO.HMGCLDS 06:33
PROVIDERS: PCP Nurse Practitioner Family; Visit Provider Nurse Practitioner Family
DX: Z00.00 Encounter for general adult medical examination without abnormal findings (principal); Z13.6 Encounter for screening for cardiovascular disorders
CPT/HCPCS: 36415; 80053; 80061; 84443; 85025

== ENCOUNTER 2024-02-25 12:07 | Outpatient (AMB) | payer OTHER, SELFPAY ==
--- NOTE | 2024-02-25 12:31 | MHC.PC.OV ---
Vital Signs 02/25/24 12:34 Height 5 ft 7 in Weight 266 lb BMI 41.7 BP 122/82 Blood Pressure Location Rt brachial Position Sitting Pulse 68 Pulse Source Pulse Oximeter Pulse Oximetry (%) 98 Oxygen Delivery Method Room Air Intake Visit Reasons: 3.5 month follow up Intake Note: Patient here for HTN f/u. Allergies cat dander [CAT] Allergy (Intermediate, Verified 02/25/24 12:34) UNKNOWN formoterol [From Dulera] Allergy (Unknown, Verified 02/25/24 12:34) Unknown mometasone furoate [From Dulera] Allergy (Unknown, Verified 02/25/24 12:34) Unknown salmeterol Allergy (Unknown, Verified 02/25/24 12:34) Unknown theophylline Allergy (Unknown, Verified 02/25/24 12:34) UNKNOWN Tobacco use date assessed: 09/17/23 Dental Screening Dental Screen Date: 09/17/23 HPI 3.5 month follow up HPI Details HTN: Blood pressure is stable, managed with losartan 25mg. Pt's blood pressure has been stable at home as well. Denies chest pain, shortness of breath, headache, dizziness, and blurred vision. Pt's liver enzymes were elevated. Will order US and hepatitis screen. Pt has been working on his diet and cutting down on alcohol use. [facility] Medical History Schizoaffective disorder, bipolar type Mild intermittent asthma without complication Anxiety and depression Dorsalgia Surgical History No pertinent past surgical history Family History Father No problems noted. Mother HTN (hypertension) Diabetes mellitus Maternal Grandmother Diabetes mellitus Cancer Maternal Grandfather No problems noted. Brother No problems noted. Social History Household Members: Other Household Members Other:: parents Housing: House Do you presently have visiting nurse or other home services: No Patient Tobacco Use Status: Never used Tobacco e-Cigarette/Vaping Use: Never Used Second Hand Smoke Exposure: Yes service: No Current occupational status: employed Current occupation: [employer] Current occupational exposures/hazards: No Sexual orientation: Straight/Heterosexual Questionnaire Thrive Questionnaire Date Thrive assessed: 09/17/23 ALYSIA-7 AMB Questionnaire ALYSIA-7 Date ALYSIA - 7 assessed: 09/17/23 Source: Developed by Drs. Torres Tony, Dulce Maria Robles, Zachary Granado and colleagues, with an educational grace from [employer]. Review of Systems Const Reports as per HPI Physical exam (Primary Care) Vital Signs: Last Vital Signs Pulse 68 02/25/24 12:34 BP 122/82 02/25/24 12:34 Pulse Ox 98 02/25/24 12:34 Oxygen Delivery Method Room Air 02/25/24 12:34 BMI result Body Mass Index 41.7 Tobacco/Smoking Status: Tobacco use Status Tobacco use date assessed 09/17/23 02/25/24 12:33 Patient Tobacco Use Status Never used Tobacco 02/25/24 12:33 e-Cigarette/Vaping Use Never Used 02/25/24 12:33 Thrive Assessment: Date of Thrive Assessment Date Thrive assessed 09/17/23 02/25/24 12:33 Const General: cooperative Nutritional Appearance: obese morbidly obese Orientation/consciousness: patient oriented x3 Resp Effort & Inspection: normal respiratory effort Auscultation: clear to auscultation bilaterally Cardio Rate: regular rate Rhythm: regular rhythm Heart sounds: S1 normal heart sound present and S2 normal heart sound present GI Palpation (GI): nontender Neuro General: patient oriented x3 Extrem Right lower extremity: no edema Left lower extremity: no edema Psych Appearance: grossly normal Mental Status: mental status grossly normal Speech and movement: Normal speech and movement present Affect: normal affect Attitude: cooperative Thought process: Normal thought process present Thought content: Normal thought content present Insight: Good insight present (Psych) Judgement: Good judgement present (Psych) Assessment and Plan Assessment & Plan (1) Elevated liver enzymes: Code(s): R74.8 - Abnormal levels of other serum enzymes Plan: US and hepatitis screen ordered, working on diet and cutting back on ETOH (2) HTN (hypertension): Code(s): I10 - Essential (primary) hypertension Plan: Stable Plan The patient agreed to the use of a medical imaging technologist for this encounter. Scribed for DEX Lawler by Nella Ellison medical imaging technologist, on 02/25/2024 at 12:45 EST. Orders: Orders Hepatitis A,B,C Profile Today R74.8 - Abnormal levels of other serum enzymes Comprehensive Met. Panel Today R74.8 - Abnormal levels of other serum enzymes US abdomen complete Today R74.8 - Abnormal levels of other serum enzymes Coding Level of Care Code Est Pt Level 3 (96211) Diagnoses Elevated liver enzymes R74.8 HTN (hypertension) I10
[2024-02-25 12:34] VITALS: BP 122/82; PULSE 68; O2SAT 98; BMI 41.7
== END 2024-02-25 13:49 | disposition home or self-care (01) ==
PROVIDERS: PCP Nurse Practitioner Family; Visit Provider Nurse Practitioner Family
DX: R74.8 Abnormal levels of other serum enzymes (principal); I10 Essential (primary) hypertension
CPT/HCPCS: 99213

== ENCOUNTER 2024-03-05 08:08 | Outpatient (REF) | payer OTHER, SELFPAY ==
--- NOTE | ~2024-03-05 | US_ITS ---
EXAMINATION: US ABDOMEN COMPLETE CLINICAL INFORMATION: Abnormal levels of other serum enzymes. COMPARISON: None available. TECHNIQUE: Real-time imaging of the abdominal viscera. Technically suboptimal study secondary to body habitus. FINDINGS: PANCREAS: The pancreas appears unremarkable, without masses or ductal dilatation, with the exception of the tail which is obscured by bowel gas. ABDOMINAL AORTA: The proximal, mid, and distal segments are normal in caliber. INFERIOR VENA CAVA: Visualized portions are normal. LIVER: The liver is enlarged at 19.5 cm. The liver contour is normal. There is diffuse increased liver parenchymal echogenicity, consistent with hepatic steatosis. No focal hepatic lesion. There is no intrahepatic biliary duct dilatation seen. GALLBLADDER: Normal. The gallbladder is physiologically distended without evidence of stones, sludge, polyps, wall thickening or pericholecystic fluid. COMMON BILE DUCT: Normal in caliber measuring 0.19 cm in diameter. RIGHT KIDNEY: Normal. No hydronephrosis. No renal calculi or focal parenchymal lesions. The kidney measures 12.1 cm in maximum dimension. LEFT KIDNEY: Normal. No hydronephrosis. No renal calculi or focal parenchymal lesions. The kidney measures 11.4 cm in maximum dimension. SPLEEN: Normal. The spleen measures 13.0 cm in maximum dimension. FREE FLUID: None. US/US abdomen complete IMPRESSION: Enlarged fatty liver.
== END 2024-03-05 08:09 | disposition home or self-care (01) ==
LOC: HO.HMGCX 08:08
PROVIDERS: PCP Nurse Practitioner Family; Visit Provider Nurse Practitioner Family
DX: R74.8 Abnormal levels of other serum enzymes (principal)
CPT/HCPCS: 76700

== ENCOUNTER → 2024-08-09 08:23 | Outpatient (BNVA) | payer SELFPAY | PROVIDERS: PCP Nurse Practitioner Family; Visit Provider Internal Medicine | DX: Z02.79 Encounter for issue of other medical certificate (principal) ==

== ENCOUNTER 2024-10-25 10:54 | Outpatient (AMB) | payer OTHER, SELFPAY ==
[2024-10-25 11:04] VITALS: BP 120/74; PULSE 68; TEMP 36.7; O2SAT 97; BMI 39.0
--- NOTE | 2024-10-25 11:04 | MHC.PC.OV ---
Vital Signs 10/25/24 11:04 Height 5 ft 7 in Weight 249 lb BMI 39.0 BP 120/74 Blood Pressure Location Lt brachial Position Sitting Pulse 68 Pulse Source Pulse Oximeter Temp 98.0 F Temp Source Oral Pulse Oximetry (%) 97 Oxygen Delivery Method Room Air Intake Visit Reasons: Annual PE/ eye issues Intake Note: pt is here for PE Allergies cat dander [CAT] Allergy (Intermediate, Verified 10/25/24 11:41) UNKNOWN formoterol [From Dulera] Allergy (Unknown, Verified 10/25/24 11:41) Unknown mometasone furoate [From Dulera] Allergy (Unknown, Verified 10/25/24 11:41) Unknown salmeterol Allergy (Unknown, Verified 10/25/24 11:41) Unknown theophylline Allergy (Unknown, Verified 10/25/24 11:41) UNKNOWN Medication List - Last Reconciled 10/25/24 by Jason Iqbal, COATER SLATE-BC brinzolamide-brimonidine 1-0.2 % (Simbrinza) 1 drp ophthalmic (eye) TID fluticasone furoate-vilanterol 100-25 mcg/dose (Breo Ellipta) 1 ea inhalation DAILY lansoprazole 30 mg PO DAILY losartan 25 mg PO DAILY 90 days risperidone 3 mg PO BEDTIME risperidone mg PO Tobacco use date assessed: 10/25/24 Dental Screening Dental Screen Date: 10/25/24 Did you have a dental visit in the last 12 months?: Yes Did you have a dental problem in the last 6 months where you did not have access to dental care?: No Was dental information given to patient?: Patient has dentist HPI Annual PE/ eye issues HPI Details History of Present Illness The patient is a 39-year-old male presenting for a routine physical examination. He reports no current issues such as shortness of breath, constipation, diarrhea, chest pain, urinary issues, or gastrointestinal problems. The patient is receiving regular psychiatric care with a therapist and psychiatrist and denies any suicidal or homicidal thoughts. He is also preparing for an upcoming right eye surgery to address glaucoma and cataracts, and he expresses enthusiasm for the procedure. Diagnostic labs have been ordered during this visit for further assessment. Health Maintenance - Routine laboratory tests have been ordered. Social History - Regular psychiatric follow-up with a therapist and a psychiatrist. - Planning for upcoming right eye surgery. Review of Systems - Respiratory: Denies shortness of breath. - Gastrointestinal: Denies constipation, diarrhea, or gastrointestinal problems. - Cardiovascular: Denies chest pain. - Genitourinary: Denies urinary problems. - Mood/Affect: Denies suicidal or homicidal ideation. Physical Exam General: Cooperative, healthy appearing, comfortable, no acute distress and well developed, obese Orientation: Patient oriented x3 Limitations: No limitations Head: Normal to inspection Ears: Hearing grossly normal bilaterally Nose: Normal external nose present Face and sinus: Normal facial exam Eyes: Appearance normal, both eyes and all related structures, pending right eye surgery for glaucoma and cataracts Neck: Normal visual inspection and Yes full ROM Respiratory: Normal respiratory effort and able to speak in complete sentences. Clear to auscultation bilaterally Cardiovascular: Regular rate and rhythm. Normal S1 and S2 GI: Normal to inspection. Soft to palpation and nontender Skin: No rashes or lesions noted Neuro: Patient oriented x3 Extremities: Normal to inspection Results - Labs: Routine laboratory tests ordered. Plan The patient is preparing for right eye surgery to address glaucoma and cataracts. Routine laboratory tests have been ordered as part of the standard physical examination. He remains under regular psychiatric care and denies any acute issues such as mood instability, suggesting stability in his mental health status. Further discussions regarding his ongoing care and management were not noted during this visit. Discussion Notes I discussed the upcoming right eye surgery with the patient, addressing its purpose and expected outcomes for managing glaucoma and cataracts. The patient appears confident in proceeding with the procedure. We also reviewed the importance of his ongoing psychiatric care, with assurance of continued support through regular therapy and psychiatry appointments. No additional acute issues were identified, and the necessity of the routine labs was conveyed as part of his overall health maintenance strategy. Patient Instructions - Follow up on lab results once available. - Continue with scheduled psychiatric appointments. - Prepare for the upcoming eye surgery as discussed with the surgical team in [place]. [facility] [place] Medical History Schizoaffective disorder, bipolar type Mild intermittent asthma without complication Anxiety and depression Dorsalgia Surgical History No pertinent past surgical history Family History Father No problems noted. Mother HTN (hypertension) Diabetes mellitus Maternal Grandmother Diabetes mellitus Cancer Maternal Grandfather No problems noted. Brother No problems noted. Social History Household Members: Other Household Members Other:: parents Housing: House Do you presently have visiting nurse or other home services: No Patient Tobacco Use Status: Never used Tobacco e-Cigarette/Vaping Use: Never Used Second Hand Smoke Exposure: Yes service: No Current occupational status: employed Current occupation: [employer] Current occupational exposures/hazards: No Sexual orientation: Straight/Heterosexual Questionnaire PHQ-9 Over the last 2 weeks, how often have you been bothered by any of the following problems? 1. Little interest or pleasure in doing things: not at all 2. Feeling down, depressed, or hopeless: not at all 3. Trouble falling or staying asleep, or sleeping too much: not at all 4. Feeling tired or having little energy: not at all 5. Poor appetite or overeating: not at all 6. Feeling bad about yourself - or that you are a failure or have let yourself or your family down: not at all 7. Trouble concentrating on things, such as reading the newspaper or watching television: not at all 8. Moving or speaking so slowly that other people could have noticed. Or the opposite - being so fidgety or restless that you have been moving around a lot more than usual: not at all 9. Thoughts that you would be better off or of hurting yourself in some way: not at all Total score: 0 Depression Screening Interpretation: Negative Depression Screening Done: Yes 73119 - PHQ-9 Billing: Yes Source: Developed by Drs. Torres Tony, Dulce Maria Robles, Zachary Granado and colleagues, with an educational grace from [employer]. Thrive Questionnaire Date Thrive assessed: 10/25/24 I am a: Patient What is your living situation today?: I have a steady place to live Within the past 12 months, did the food you bought not last and you didn't have the money to get more?: Never true Within the past 12 months, did you worry whether your food would run out before you got money to buy more?: Never true Do you have trouble paying for medicines?: No Do you have trouble getting transportation to medical appointments?: No Do you have trouble paying your heating and electricity bill?: No Do you have trouble taking care of your child, family member or friend?: No Do you have trouble with day-to-day activities such as bathing, preparing meals, shopping, managing finances, etc.?: No Are you currently unemployed and looking for a job?: No Are you interested in more education?: No Please select the resources that you would like help with: None Currently or been in a relationship where the following occur: No concerns reported THRIVE Score: 0 AUDIT C Alcohol Use Questionnaire (AUDIT-C) 1. How often do you have a drink containing alcohol?: 2-4 times a month 2. How many drinks containing alcohol do you have on a typical day when you are drinking?: 3 or 4 3. How often do you have six or more drinks on one occasion?: Never Total Score: 3 Score Reviewed/Action Taken: Yes ALYSIA-7 AMB Questionnaire ALYSIA-7 Date ALYSIA - 7 assessed: 10/25/24 Feeling nervous, anxious, or on edge: 0 = Not at all Not being able to stop or control worryin = Not at all Worrying too much about different things: 0 = Not at all Trouble relaxin = Not at all Being so restless that it is hard to sit still: 0 = Not at all Becoming easily annoyed or irritable: 0 = Not at all Feeling afraid as if something awful might happen: 0 = Not at all Total ALYSIA-7 score (0-4 normal; 5-9 mild; 10-14 moderate; 15-21 severe): 0 Source: Developed by Drs. Torres Tony, Ducle Maria Robles, Zachary Granado and colleagues, with an educational grace from [employer]. ALYSIA-7 Assessment Billing ALYSIA-7 Assessment Tool: ALYSIA-7 Assessment 94935 Physical exam (Primary Care) Vital Signs: Last Vital Signs Temp 98.0 F 10/25/24 11:04 Pulse 68 10/25/24 11:04 BP 120/74 10/25/24 11:04 Pulse Ox 97 10/25/24 11:04 Oxygen Delivery Method Room Air 10/25/24 11:04 BMI result Body Mass Index 39.0 Tobacco/Smoking Status: Tobacco use Status Tobacco use date assessed 10/25/24 10/25/24 11:08 Patient Tobacco Use Status Never used Tobacco 10/25/24 11:08 e-Cigarette/Vaping Use Never Used 10/25/24 11:08 PHQ-9: PHQ-9 Score PHQ-9: Total score 0 10/25/24 11:08 Depression Screening Interpretation: Negative Thrive Assessment: Date of Thrive Assessment Date Thrive assessed 10/25/24 10/25/24 11:08 Currently or been in a relationship where the following occur: No concerns reported Coding Level of Care Code Est Pt Prev Care 40-64y(87169) Diagnoses Physical exam Z00.00 Additional Codes ALYSIA-7 Assessment Billing - ALYSIA-7 Assessment Tool: ALYSIA-7 Assessment 79174 ([id number]) PHQ-9 - 89788 - PHQ-9 Billing: Yes ([id number]) Assessment & Plan Assessment & Plan (1) Physical exam: Code(s): Z00.00 - Encounter for general adult medical examination without abnormal findings Category: Medical Plan: . Orders: Orders UA CC w/rflx Micro + Cult Today Z00.00 - Encounter for general adult medical examination without abnormal findings Lipid Panel Today Z00.00 - Encounter for general adult medical examination without abnormal findings Complete Blood Count Auto Diff Today Z00.00 - Encounter for general adult medical examination without abnormal findings Comprehensive [place]. Panel Fast Today Z00.00 - Encounter for general adult medical examination without abnormal findings TSH reflex Free T4 Today Z00.00 - Encounter for general adult medical examination without abnormal findings
== END 2024-10-25 11:55 | disposition home or self-care (01) ==
PROVIDERS: PCP Nurse Practitioner Family; Visit Provider Nurse Practitioner Family
DX: Z00.00 Encounter for general adult medical examination without abnormal findings (principal)

== ENCOUNTER → 2024-10-25 10:54 | Outpatient (BNVA) | payer OTHER, SELFPAY | PROVIDERS: PCP Nurse Practitioner Family; Visit Provider Nurse Practitioner Family | DX: Z00.00 Encounter for general adult medical examination without abnormal findings (principal) | CPT/HCPCS: 96127 ==

== ENCOUNTER 2024-11-23 10:02 | Outpatient (REF) | payer OTHER, SELFPAY ==
[2024-11-23 13:23] LABS: Appearance Urine Clear; Color Urine Yellow; Glucose Urine UA Negative (Negative); Leukocyte Esterase Urine Negative (Negative); Nitrite Urine Negative (Negative); PH 6.5 (5.0-9.0); Specific Gravity - Urine <= 1.005 (1.005-1.025); Urine Blood Negative (Negative); Urine Ketones Negative (Negative); Urine Protein Negative (Neg-Trace)
== END 2024-11-23 10:03 | disposition home or self-care (01) ==
LOC: HO.HMGCLDS 10:02
PROVIDERS: PCP Nurse Practitioner Family; Visit Provider Nurse Practitioner Family
DX: Z00.00 Encounter for general adult medical examination without abnormal findings (principal)
CPT/HCPCS: 81003

== ENCOUNTER 2024-11-26 07:33 | Outpatient (REF) | payer OTHER, SELFPAY ==
[2024-11-26 10:06] LABS: MANUAL DIFF FLAG NO
[2024-11-26 10:20] LABS: Basophils Absolute Auto 0.1 X10*3/uL (0.0-0.2); Basophils Percent Auto 0.8 % (0-2); Eosinophils Absolute Auto 0.2 X10*3/uL (0.0-0.4); Eosinophils Percent Auto 3.5 % (0-4); Hematocrit 47.2 % (42.0-52.0); Hemoglobin 16.3 g/dl (14.0-18.0); Imm Gran Abs Auto 0.02 X10*3/uL (0.00-0.03); Imm Gran Pct Auto 0.3 % (0.0-0.4); Lymphocytes Absolute Auto 2.1 X10*3/uL (1.2-4.9); Lymphocytes Percent Auto 34.5 % (20-40); Mean Corpuscular HGB Conc 34.5 g/dl (31.0-36.0); Mean Corpuscular Hemoglobin 28.8 pg (27.0-33.0); Mean Corpuscular Volume 83.5 fL (80.0-98.0); Mean Platelet Volume 10.6 fL (9.4-12.4); Monocytes Absolute Auto 0.8 X10*3/uL (0.1-1.2); Monocytes Percent Auto 12.7 % (2-11); Neutrophils Absolute Auto 2.9 x10*3/uL (2.0-8.3); Neutrophils Percent Auto 48.2 % (45-73); Platelet Count 248 X10*3/uL (160-400); Red Blood Count 5.65 X10*6/uL (4.60-5.80); Red Cell Distribution Width 13.1 % (11.0-16.0); White Blood Count 6.1 X10*3/uL (4.8-10.8)
[2024-11-26 11:01] LABS: Alanine Aminotransferase 40 U/L (0-40); Albumin Level 4.2 g/dL (3.5-5.0); Alkaline Phosphatase 59 U/L (39-117); Anion Gap 10 (12-20); Aspartate Amino Transferase 30 U/L (5-37); Bilirubin Total 1.2 mg/dL (0.0-1.0); Blood Urea Nitrogen 15 mg/dL (9-16); Carbon Dioxide 25 mmol/L (22-29); Chloride 110 mmol/L (96-108); Cholesterol 123 mg/dL (<200); Estimated Glomerular Filt Rate > 60; Glucose Fasting 96 mg/dL (60-99); HDL Cholesterol 33 mg/dL (>40); LDL Cholesterol Calculated 72 mg/dL (<100); Potassium 3.9 mmol/L (3.3-5.1); Sodium 141 mmol/L (135-145); Total Protein 6.9 g/dL (6.5-8.0); Triglycerides 92 mg/dL (<150)
[2024-11-26 11:27] LABS: TSH reflex Free T4 2.53 uIU/mL (0.32-4.0)
== END 2024-11-26 07:34 | disposition home or self-care (01) ==
LOC: HO.HMGCLDS 07:33
PROVIDERS: PCP Nurse Practitioner Family; Visit Provider Nurse Practitioner Family
DX: Z00.00 Encounter for general adult medical examination without abnormal findings (principal)
CPT/HCPCS: 36415; 80053; 80061; 84443; 85025

== ENCOUNTER 2025-05-02 15:18 | Outpatient (AMB) | payer OTHER, SELFPAY ==
[2025-05-02 15:26] VITALS: BP 140/90; PULSE 81; RESP 16; TEMP 36.9; O2SAT 96; BMI 40.9
--- NOTE | 2025-05-02 15:26 | A.OFFPC_ITS ---
Vital Signs 05/02/25 15:26 Height 5 ft 7 in Weight 261 lb BMI 40.9 BP 140/90 H Blood Pressure Location Lt brachial Position Sitting Respiration 16 Pulse 81 Pulse Source Pulse Oximeter Temp 98.4 F Temp Source Oral Pulse Oximetry (%) 96 Oxygen Delivery Method Room Air Intake Visit Reasons: 6 month f/up Self Contained Behavior Unit Teacher Required: No Allergies cat dander (CAT) Allergy (Intermediate, Verified 10/25/24 11:41) UNKNOWN formoterol (From Dulera) Allergy (Unknown, Verified 10/25/24 11:41) Unknown mometasone furoate (From Dulera) Allergy (Unknown, Verified 10/25/24 11:41) Unknown salmeterol Allergy (Unknown, Verified 10/25/24 11:41) Unknown theophylline Allergy (Unknown, Verified 10/25/24 11:41) UNKNOWN Medication List - Last Reconciled 05/02/25 by Jason Iqbal, SPONGE CLIPPER-BC brinzolamide-brimonidine 1-0.2 % (Simbrinza) 1 drp ophthalmic (eye) TID fluticasone furoate-vilanterol 100-25 mcg/dose (Breo Ellipta) 1 ea inhalation DAILY lansoprazole 30 mg PO DAILY losartan 25 mg PO DAILY 90 days risperidone 3 mg PO BEDTIME risperidone mg PO Tobacco use date assessed: 05/02/25 Dental Screening Dental Screen Date: 05/02/25 Did you have a dental visit in the last 12 months?: Yes Did you have a dental problem in the last 6 months where you did not have access to dental care?: No Was dental information given to patient?: Patient has dentist HPI 6 month f/up HPI Details Chief Complaint The patient presents for a follow-up regarding hypertension management. History of Present Illness The patient is a 39-year-old male presenting with hypertension management. He reports that his blood pressure is stable and denies any symptoms such as chest pain, shortness of breath, headache, or blurred vision. He is fairly active at work and enjoys fishing as a recreational activity. The patient is also noted to be obese, and weight loss was encouraged during the visit. Social History - Employment: Fairly active at work - Recreational activities: Enjoys [place] [employer] Health Maintenance - Encouraged weight loss for obesity man agement Review of Systems - Cardiovascular: Denies chest pain - Respiratory: Denies shortness of breat h - Neurological: Denies headache or blurr ed vision Physical Exam General: Cooperative, healthy appearing, comfortable, no acute distress and well developed, m. obese Orientation: Patient oriented x3 Limitations: No limitations Head: Normal to inspection Ears: Hearing grossly normal bilaterally Nose: Normal external nose present Face and sinus: Normal facial exam Eyes: Appearance normal, both eyes and all related structures Neck: Normal visual inspection and Yes full ROM, no carotid bruits noted Respiratory: Normal respiratory effort and able to speak in complete sentences. Clear to auscultation bilaterally Cardiovascular: Regular rate and rhythm. Normal S1 and S2 GI: Normal to inspection. Soft to palpation and nontender Skin: No rashes or lesions noted Neuro: Patient oriented x3 Extremities: Normal to inspection, patient is obese Results Plan 1. Essential Hypertension The patient's blood pressure is stable, and he denies any associated symptoms such as chest pain or shortness of breath. A follow-up appointment is scheduled in 6 months for a full physical examination. 2. Obesity The patient is encouraged to pursue weight loss strategies to manage obesity. Discussion Notes I discussed with the patient the importance of maintaining stable blood pressure and encouraged weight loss to manage obesity. We agreed on a follow-up in 6 months for a comprehensive physical examination. Patient Instructions - Continue monitoring blood pressure reg ularly. - Engage in regular physical activity an d consider dietary changes to aid in weight loss. - Return for a follow-up appointment in 6 months. [facility] Medical History Schizoaffective disorder, bipolar type Mild intermittent asthma without complication Anxiety and depression Dorsalgia Surgical History No pertinent past surgical history Family History Father No problems noted. Mother HTN (hypertension) Diabetes mellitus Maternal Grandmother Diabetes mellitus Cancer Maternal Grandfather No problems noted. Brother No problems noted. Social History Household Members: Other Household Members Other:: parents Housing: House Do you presently have visiting nurse or other home services: No Patient Tobacco Use Status: Never used Tobacco e-Cigarette/Vaping Use: Never Used Second Hand Smoke Exposure: Yes service: No Current occupational status: employed Current occupation: [employer] Current occupational exposures/hazards: No Sexual orientation: Straight/Heterosexual Questionnaire Thrive Questionnaire Date Thrive assessed: 10/25/24 I am a: Patient What is your living situation today?: I have a steady place to live Within the past 12 months, did the food you bought not last and you didn't have the money to get more?: Never true Within the past 12 months, did you worry whether your food would run out before you got money to buy more?: Never true Do you have trouble paying for medicines?: No Do you have trouble getting transportation to medical appointments?: No Do you have trouble paying your heating and electricity bill?: No Do you have trouble taking care of your child, family member or friend?: No Do you have trouble with day-to-day activities such as bathing, preparing meals, shopping, managing finances, etc.?: No Are you currently unemployed and looking for a job?: No Are you interested in more education?: No Please select the resources that you would like help with: None Currently or been in a relationship where the following occur: No concerns reported THRIVE Score: 0 ALYSIA-7 AMB Questionnaire ALYSIA-7 Date ALYSIA - 7 assessed: 10/25/24 Source: Developed by Drs. Torres Tony, Dulce Maria Robles, Zachary Granado and colleagues, with an educational grace from [employer]. Physical exam (Primary Care) Vital Signs: Last Vital Signs Temp 98.4 F 05/02/25 15:26 Pulse 81 05/02/25 15:26 Resp 16 05/02/25 15:26 BP 140/90 H 05/02/25 15:26 Pulse Ox 96 05/02/25 15:26 Oxygen Delivery Method Room Air 05/02/25 15:26 BMI result Body Mass Index 40.9 Tobacco/Smoking Status: Tobacco use Status Tobacco use date assessed 05/02/25 05/02/25 15:32 Patient Tobacco Use Status Never used Tobacco 05/02/25 15:32 e-Cigarette/Vaping Use Never Used 05/02/25 15:32 Thrive Assessment: Date of Thrive Assessment Date Thrive assessed 10/25/24 05/02/25 15:32 Currently or been in a relationship where the following occur: No concerns reported Coding Level of Care Code Est Pt Level 3 (81494) Diagnoses HTN (hypertension) I10 Assessment & Plan Assessment & Plan (1) HTN (hypertension): Code(s): I10 - Essential (primary) hypertension Category: Medical Plan . Orders: Orders Lipid Panel Today I10 - Essential (primary) hypertension UA CC w/rflx Micro + Cult Today Z00.01 - Encounter for general adult medical examination with abnormal findings Complete Blood Count Auto Diff Today I10 - Essential (primary) hypertension Comprehensive [place]. Panel Fast Today I10 - Essential (primary) hypertension TSH reflex Free T4 Today I10 - Essential (primary) hypertension
--- OUTSIDE RECORDS SUMMARY | 2025-05-02 18:24 | XMS_ITS | Clinical Summary ---
Author Organization [facility] Address [address] [address] Phone Care Team Providers Care Dry Ice Machine Operator Name Role Phone John Harmon MD Primary Care Provider Allergies Active Allergy Reactions Criticality Noted Date Comments Salmeterol Shortness Of Breath High 01/05/2018 Theophylline Shortness Of Breath High 01/05/2018 Medications albuterol (PROAIR HFA) 90 mcg/actuation inhaler 2 puffs as needed Inhalation every 4 hrs PRN 02/27/20 17 Active fluticasone-sa lmeterol (ADVAIR DISKUS) 250-50 mcg/dose DISKUS Inhale 1 puff into the lungs 2 (two) times a day. 09/27/19 17 Active risperiDONE (RISPERDAL) 1 MG tablet Take 1 tablet by mouth 2 (two) times a day. Active ipratropium-al buterol (DUONEB) 0.5-2.5 mg/3 mL nebulizer solution 3 ml Inhalation Four times a day PRN 12/02/19 13 Active albuterol 2.5 mg /3 mL (0.083 %) nebulizer solution Take 3 mL (2.5 mg total) by nebulization 4 (four) times a day as needed for wheezing or shortness of breath/dyspnea. 3 ml as needed Inhalation every 4 hrs PRN 120 mL 06/01/20 22 Active fluticasone furoate-vilant Davian (BREO ELLIPTA) 100-25 mcg/dose inhaler Inhale 1 puff into the lungs daily. 1 each 08/29/19 23 Active Additional Information Patient taking differently:1 puff InhalationEvery evening, Reported on 11/03/2024 SIMBRINZA 1-0.2 % DrpS Place 1 drop into the right eye 2 (two) times a day. 08/27/19 24 Active lansoprazole (PREVACID) 30 MG capsule Take 1 capsule by mouth daily. Takes in evening 08/31/19 25 Active losartan (COZAAR) 25 MG tablet take 1 tablet by mouth daily for 90 days Active prednisoLONE acetate (PRED FORTE) 1 % ophthalmic suspension Place 1 drop into the right eye 4 (four) times a day. Post surgery. 5 mL 1 11/11/19 25 Active Additional Information Patient not taking.Reported on 12/23/2024 ketorolac (ACULAR) 0.5 % ophthalmic solution Place 1 drop into the right eye 4 (four) times a day. Start 3 (three) days prior to the surgery. Continue post surgery. 5 mL 11/11/19 25 Active Additional Information Patient not taking.Reported on 12/23/2024 Active Problems Problem Noted Date Diagnosed Date GERD (gastroesophageal reflux disease) Psychiatric disorder 11/17/2024 Family History Medical History Relation Comments Other Unspecified Mother - HTN, DM . Father is healthy. Brother is healthy. Relation Status Comments Unspecified Social History Tobacco Use Types Packs/Day Years Used Date Smoking Tobacco: Never Smokeless Tobacco: Never Tobacco Cessation:Counseling Given: Not Answered Alcohol Use Standard Drinks/Week Comments Yes 3 (1 standard drink = 0.6 oz pur e alcohol) social Education Answer Date Recorded Are you interested in more education? Not on saravanan e 12/20/2022 Are you concerned about learning? Not on file 12/20/2022 No 12/20/2022 No 12/20/2022 Digital Access Answer Date Recorded No 01/20/2023 No 01/20/2023 Reliable internet access at home? Not on file 01/20/2023 Device with a working camera? Not on file Intimate Partner Violence Answer Date R ecorded Are you denied basic needs s uch as food, clothing, or medical care? No 11/17/2024 In the past 12 months have y ou been in a relationship with a person who hurts, threatens, or tries to control you? No 11/17/2024 Are you denied basic needs s uch as food, clothing, or medical care? No 11/17/2024 In the past 12 months have y ou been in a relationship with a person who hurts, threatens, or tries to control you? No 11/17/2024 Sex and Gender Information Value Date Recorded Sex Assigned at Male 01/05/2018 7:49 PM EDT Legal Sex Male 9:17 PM EDT Gender Identity Male 01/05/2018 7:49 PM EDT Sexual Orientation Straight 01/05/2018 7: 49 PM EDT Last Filed Vital Signs Vital Sign Reading Time Taken Comments Blood Pressure 128/72 11/17/2024 11:45 AM EDT Pulse 86 11/17/2024 11:45 AM EDT Temperature 36.6 C (97.8 F) 11/17/2024 11:30 AM EDT Respiratory Rate 16 11/17/2024 11:30 AM EDT Oxygen Saturation 98% 11/17/2024 11:45 AM EDT Inhaled Oxygen Concentration - - Weight 112.9 kg (249 lb) 11/17/2024 9:34 AM EDT Height 172.7 cm (5' 8 ) 11/17/2024 9:34 AM EDT Body Mass Index 37.86 11/17/2024 9:34 AM EDT Plan of Treatment Health Maintenance Due Date Last Done Comments DEPRESSION SCREENING 1995 HEPATITIS C SCREENING 2001 HIV ONE-TIME SCREENING (18-6 5 YEARS) 2001 Adult Td,Tdap Booster 02/14/2018 02/15/2008 , 08/25/2005 SCREENING FOR DIABETES 2018 LIPID PANEL 02/15/2020 02/14/2015 CREATININE LEVEL 06/01/2023 06/01/2022 POTASSIUM LEVEL 06/01/2023 06/01/2022 INFLUENZA VACCINE (#1) 2025 COVID-19 VACCINE (2024-2 6 season) 2025 07/14/2021, 01/04/2021, 12/14/2020 SMOKING STATUS SCREENING (On ce After 26 Yrs) Completed 11/24/2024 HEPATITIS A VACCINES Aged Out No long er eligible based on patient's age to complete this topic HIB VACCINES Aged Out No longer eligi ble based on patient's age to complete this topic MENINGOCOCCAL VACCINES (ACWY) Aged Out No longer eligible based on patient's age to complete this topic MENINGOCOCCAL VACCINES (B) Aged Out N o longer eligible based on patient's age to complete this topic PNEUMOCOCCAL VACCINES (0-49 years) Aged Out No longer eligible b ased on patient's age to complete this topic Medical Devices Implanted Type Area Phlebotomy Specialist Device Identifier Shelf Expiration Date Model / Serial / Lot Lens Intraocular Tecnis Pre-Loaded Dcb00 23.0d - [id number] Implanted:Qty: 1 on 11/17/2024 by Maddy Shore MD at [facility] Ear Lens Right: Eye [employer] 07/05/2027 [id number] / [id number] / Procedures Procedure Name Priority Date/Time Associated Diagnosis Comments BASIC METABOLIC PANEL STAT 06/01/2022 1:31 AM EDT OUTSIDE LDL Routine 02/14/2015 from Last 3 Months or Most Recently Relevant to Health Maintenance Results * (ABNORMAL) Basic metabolic panel (06/01/2022 1:31 AM EDT) SODIUM 139 133 - 146 mmol/L [facility] CHLORIDE 103 96 - 108 mmol/L [facility] POTASSIUM 4.2 3.3 - 5.1 mmol/L [facility] CO2 24 21 - 35 mmol/L [facility] BUN 16 6 - 19 mg/dL [facility] CREATININE 1.00 0.5 - 1.5 mg/dL [facility] GLUCOSE 126(H) 70 - 99 mg/dL [facility] CALCIUM 9.0 8.4 - 10.3 mg/dL [facility] EGFR 99 >59 mL/min/1.7 3m2 [facility] Comment:Estimated glomerular filtration rate calculated using the CKD-EPI refit equation. ANION GAP 16 10 - 20 mmol/L [facility] Blood 06/01/2022 1:31 AM EDT 06/01/2022 1:35 AM EDT Deshawn Bolivar MD LAB BLOOD ORDERAB LES Final Result [facility] [address] [place] [address] * Outside LDL (02/14/2015) LDL - External 67 50 - 250 mg/ml us Historical Provider LAB BLOOD ORDERABLES Aivva l Result from Last 3 Months or Most Recently Relevant to Health Maintenance Insurance [facility] [address] [place] [id number] [place] [address] [facility] Care Teams Dry Ice Machine Operator Relationship Specialty Start Date End Date John Harmon MD [address] [facility] [place] [address] PCP - General Internal Medicine 01/05/18 Additional Source Comments The information contained in this document represents components of the legal health record. It is not the complete legal health record.[facility]
--- OUTSIDE RECORDS SUMMARY | 2025-05-02 18:24 | XMS_ITS | Encounter Summary ---
Author Organization Located [facility] Address [address] [facility] [address] [place] [id number] Phone Care Team Providers Care Automatic Machine Attendant Name Role Phone John Harmon MD Primary Care Provider [phone] Encounter Details Date Type Department Care Team ([facility] st Contact Info) Description 11/17/2024 Procedure Pass [facility] PERIOP DEPT [address] [place] [id number] Social History Tobacco Use Types Packs/Day Years Used Date Smoking Tobacco: Never Smokeless Tobacco: Never Alcohol Use Standard Drinks/Week Comments Yes 3 [...] Orientation Straight 01/05/2018 7: 49 PM EDT documented as of this encounter Plan of Treatment Not on file documented as of this encounter Visit Diagnoses Not on filedocumented in this encounter Care Teams Automatic Machine Attendant Relationship Specialty Start Date End Date John Harmon MD [facility] [place] [address] PCP - General Internal Medicine 01/05/18 documented as of this encounter Additional Source Comments The information contained in this document represents components of the legal health record. It is not the complete legal health record.[facility]
== END 2025-05-02 16:33 | disposition home or self-care (01) ==
LOC: HO.HMCC 15:19
PROVIDERS: PCP Nurse Practitioner Family; Visit Provider Nurse Practitioner Family
DX: I10 Essential (primary) hypertension (principal)